=== PATIENT | male | born 1930 | race Caucasian/White ===

== ENCOUNTER → 2016-08-04 | Outpatient (CLI) | payer OTHER, BC ==
[~2016-08-04] MED LIST: AMB5 PO; AMOX500C3 PO; ASCO500C43 PO; ASPI81TA21 PO; ATOR-24 PO; ATV1 PO; CHOL100010 PO; CYAN10004 PO; DOCU-94 PO; EFF375 PO; FINA5TAB PO; GABA-112 PO; HYDR25TA4 PO; LISI40TA PO; MINEOIL PO; MRPSR15 PO; MULT-506 PO; OXYC15TA89 PO; POLY1POW2 PO; PSYL1.7W PO; RXC5 PO; SENN-65 PO; TAMS0.4C59 PO
[2016-08-04 14:37] LABS: BASO % 0.3 %; BASO ABS # 0.02 K/uL (0-0.2); COMPLETE YES; EOS % 3.1 %; IG% 0.4 %; LYMPH % 25.6 %; LYMPH ABS # 1.93 K/uL (1.2-3.4); MEAN CELL VOLUME 87.9 fL (80-100); MEAN CORPUSCULAR HEMOGLOBIN 30.1 pg (25-34); MEAN CORPUSCULAR HGB CONC 34.3 g/dl (32-36); MEAN PLATELET VOLUME 10.9 fL (7.4-10.4); MONO % 7.3 %; NEUT % 63.3 %; PLATELET COUNT 246 K/uL (130-400); RED BLOOD COUNT 4.55 M/uL (4.7-6.1); WHITE BLOOD COUNT 7.54 K/uL (4.8-10.8)
[2016-08-04 14:38] LABS: URINE APPEARANCE CLEAR (CLEAR); URINE BILIRUBIN NEG (NEG); URINE COLOR YELLOW; URINE NITRITE NEG (NEG); URINE SPECIFIC GRAVITY 1.015 (1.000-1.030); UROBILINOGEN NEG (NEG)
[2016-08-04 14:47] LABS: REVIEW REQ? NO
[2016-08-04 14:52] LABS: MANUAL MICROSCOPIC REQUIRED? NO
[2016-08-04 15:16] LABS: BLOOD UREA NITROGEN 19 mg/dl (7-18); BUN/CREATININE RATIO 17.3 (10-20); CALCIUM 9.6 mg/dl (8.5-10.1); CARBON DIOXIDE 29 mmol/L (21-32); CHLORIDE 97 mmol/L (98-107); GLUCOSE 82 mg/dl (70-99); POTASSIUM 3.9 mmol/L (3.5-5.1); SODIUM 136 mmol/L (136-145)
== END | disposition home or self-care (01) ==
LOC: C.LAB 12:53
PROVIDERS: ATTEND Orthopaedic Surgery Orthopaedic Surgery of the Spine
DX: M48.06 Spinal stenosis, lumbar region (principal)

== ENCOUNTER 2016-08-14 10:59 | Inpatient (IN) | payer OTHER, BC ==
[2016-08-03 15:02] VITALS: BMI 26.0
[~2016-08-14] VITALS: Ht 180.3 cm; Wt 86.5 kg
[2016-08-14] VITALS (18 sets, daily range): BP systolic 75–166; BP diastolic 7–79; PULSE 78–112; TEMP 36.4; O2SAT 87–100; Ht 180.3 cm; Wt 86.5 kg
--- NOTE | 2016-08-14 07:43 | History and Physical ---
History & Physical Date & Time of Service: Aug 14, 2016 at 07:33 Chief Complaint: Spinal Stenosis Primary Care Physician: Dylon Platt M.D. History of Present Illness Source: patient Patient presents with right greater than eft leg pain. 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 Social History Smoking Status: Former Smoker Immunizations History of Influenza Vaccine: No History of Tetanus Vaccine?: No History of Pneumococcal: No History of Hepatitis B Vaccine: No Multi-Drug Resistant Organisms History of MDRO: No Allergies Coded Allergies: Duloxetine (Unverified Allergy, Unknown, per PCP note , 08/03/16) Home Medications Scheduled Amoxicillin (Amoxil), 2,000 MG PO PRN/UD Ascorbic Acid (Vitamin C 500 mg), Unknown Dose PO QAM Aspirin Enteric Coated (Ecotrin Or Generic), 81 MG PO QAM Atorvastatin (Lipitor), 40 MG PO QAM Cholecalciferol (Vitamin D), 1 TAB PO QAM Cyanocobalamin (Vitamin B-12 1000 Mcg), 1,000 MCG PO QAM Docusate Sodium (Colace), 1 CAP PO QPM Finasteride (Proscar), 5 MG PO QPM Gabapentin (Neurontin), 100-300 MG PO TID Hydrochlorothiazide (Hctz), 12.5 MG PO QAM Lisinopril (Zestril), 40 MG PO QAM Mineral Oil (Mineral Oil), 1 TSP PO QPM Multivitamin (Multivitamin), 1 TABLET PO QAM Oxycodone Hcl (Oxycontin), 10 MG PO Q12 Polyethylene Glycol 3350 (Bulk (Polyethylene Glycol 3350), 17 GM PO QPM Psyllium (Metamucil), Unknown Dose PO QPM Senna/Docusate Sod (Senokot S), 1 TAB PO QPM Tamsulosin Hcl (Flomax), 2 TAB PO QPM Venlafaxine HCl (Venlafaxine HCl), 1 TAB PO QAM Zolpidem Tartrate (Ambien *), 5 MG PO HS Scheduled PRN Lorazepam (Ativan *), 1 TAB PO BID PRN for Anxiety/Agitation Physical Exam General Appearance: WD/WN Head: normocephalic Eyes: normal inspection ENT: normal ENT inspection Neck: supple, no adenopathy Respiratory/Chest: chest non-tender Cardiovascular: normal peripheral pulses Abdomen/GI: non tender, soft Back: no muscle spasm Extremities/Musculoskelatal: non-tender Neurologic/Psych: + abnormal gait, + motor weakness Skin: normal color Diagnostics Diagnostic Radiology MRI L2-S1 post op changes. Stenosis at L1-L2 compromising the thecal sack. Impression Assessment and Plan Adjacent disease with significant stenosis, right greater than left leg pain. He has failed all conservative measures and presents for a thoraco-lumbar decompression and fusion. Advanced Directives Existing Living Will: Yes Existing Power of Automotive Parts Counterperson: No
--- NOTE | 2016-08-14 09:24 | History & Physical Bridge Note ---
H&P Re-Evaluation Bridge Note: I have examined the patient, reviewed the History & Physical and in the interval since the performance of the History & Physical I have noted the following changes of clinical significance: No changes noted
[~2016-08-14 10:59] MED LIST changes: +CEFAZOLIN 2000 MG/60 ML D5W IV SCH; +LACTATED RINGER'S 1000ML 1,000 ML IV SCH; -MRPSR15 PO; +OXYCODONE HCL 10 MG TABCR (OXYCONTIN) PO SCH; -RXC5 PO
[2016-08-14] MEDS ORDERED: HYDROmorphone INJ 1 MG/ML SYR IV PRN (11:15)
[2016-08-14] MEDS ORDERED: EpHEDrine SULFATE INJ 50 MG/ML AMP IV PRN (11:15)
[2016-08-14] MEDS ORDERED: ATROPINE SULFATE 0.1 MG/ML 5ML SYR IV PRN (11:15)
[2016-08-14] MEDS ORDERED: ONDANSETRON INJ 2 MG/ML 2 ML VIAL IV PRN ×2 (11:15→16:30)
[2016-08-14] MEDS ORDERED: LABETALOL HCL IV 5 MG/ML 20ML IV PRN (11:15)
[2016-08-14] MEDS ORDERED: MEPERIDINE HCL 25 MG/ML CARP IV PRN (11:15)
[2016-08-14] MEDS ORDERED: FENTANYL CITRATE INJ 50 MCG/1 ML 2 ML VIAL IV PRN (11:15)
[2016-08-14] MEDS ORDERED: ETOMIDATE 2 MG/ML 20 ML VIAL IV ONE (12:27)
[2016-08-14] MEDS ORDERED: ROCURONIUM BROMIDE 10 MG/ML 5 ML VIAL ONE (12:27)
[2016-08-14] MEDS ORDERED: FENTANYL CITRATE INJ 50 MCG/1 ML 2 ML VIAL ONE ×4 (12:27→17:18)
[2016-08-14] MEDS ORDERED: ONDANSETRON INJ 2 MG/ML 2 ML VIAL ONE (12:33)
[2016-08-14] MEDS ORDERED: DEXAMETHASONE SOD INJ 4 MG/ML VIAL ONE ×2 (12:33)
[2016-08-14] MEDS ORDERED: SODIUM CHLORIDE 0.9% PF 50 ML VIAL ONE (12:58)
[2016-08-14] MEDS ORDERED: BUPIVACAINE/EPINEPHRINE 0.5% MPF 1:200,000 30 ML VIAL ONE (12:58)
[2016-08-14] MEDS ORDERED: THROMBIN FOR SOLN 20000 UNIT KIT ONE (12:59)
[2016-08-14] MEDS ORDERED: BACITRACIN 50000 UNIT VIAL ONE (12:59)
--- NOTE | 2016-08-14 13:00 | History & Physical Bridge Note ---
H&P Re-Evaluation Bridge Note: I have examined the patient, reviewed the History & Physical and in the interval since the performance of the History & Physical I have noted the following changes of clinical significance: No changes noted T10 to S1 with iliac bolt fusion. Removal inst L2-l5
[2016-08-14] MEDS ORDERED: HYDROmorphone INJ 2 MG/ML SYR/VIAL ONE (13:41)
[2016-08-14] MEDS ORDERED: PROPOFOL IV EMULSION 10 MG/ML 20 ML VIAL IV ONE (13:41)
[2016-08-14] MEDS ORDERED: PHENYLEPHRINE 100MCG/ML 5ML SYR ONE (14:18)
[2016-08-14 15:22] LABS: ISTAT CREATININE 0.6 mg/dl (0.6-1.3); ISTAT HEMOGLOBIN 10.2 g/dl (14.0-18.0); ISTAT IONIZED CALCIUM 1.21 mmol/l (1.12-1.32)
[2016-08-14] MEDS ORDERED: SODIUM CHLORIDE 0.9% 1000ML 1,000 ML IV SCH (16:24)
[2016-08-14] MEDS ORDERED: LACTATED RINGER'S 1000ML 1,000 ML IV SCH (16:24)
[2016-08-14] MEDS ORDERED: SOD PHOSPHATE/SOD BIPHOSPHATE ENEMA 132 ML BTL PR PRN (16:30)
[2016-08-14] MEDS ORDERED: METOCLOPRAMIDE HCL INJ 5 MG/ML 2 ML VIAL IV PRN (16:30)
[2016-08-14] MEDS ORDERED: hydrOXYzine HCL 25 MG TAB PO PRN (16:30)
[2016-08-14] MEDS ORDERED: PROMETHAZINE HCL INJ 12.5 MG in SODIUM CHLORIDE 0.9% 50ML 50 ML IV PRN (16:30)
[2016-08-14] MEDS ORDERED: MAGNESIUM HYDROXIDE SUSP 30 ML UDC PO PRN (16:30)
[2016-08-14] MEDS ORDERED: BISACODYL 10 MG SUPP PR PRN (16:30)
[2016-08-14] MEDS ORDERED: ACETAMINOPHEN IV 100 ML IV PRN (16:30)
[2016-08-14] MEDS ORDERED: DO NOT ADMINISTER PNEUMOCOCCAL VACCINE PRN ×2 (16:30)
[2016-08-14] MEDS ORDERED: LORAZEPAM INJ 0.5 MG in SYRINGE 0 ML IV PRN (16:30)
[2016-08-14] MEDS ORDERED: DO NOT ADMINISTER FLU VACCINE PRN ×3 (16:30)
[2016-08-14] MEDS ORDERED: NALOXONE HCL 0.4 MG/1 ML VIAL/CARP IV PRN ×2 (16:30)
[2016-08-14] MEDS ORDERED: HYDROmorphone HCL 0.5MG/ML 50 ML CASSETTE IV PRN (16:30)
[2016-08-14] MEDS ORDERED: ALBUMIN HUMAN 5% 12.5 GM/250 ML VIAL IV ONE (16:44)
--- NOTE | 2016-08-14 16:49 | DIAGNOSTIC IMAGING REPORT ---
Lumbar spine LUMBAR SPINE 2 OR 3 VIEW CLINICAL HISTORY: T10-S1 DECOMPRESSION/FUSION/INTERBODY/PEDICLE SCREWS TECHNIQUE: Image intensifier COMPARISON STUDY: None FINDINGS: Image intensifier utilized for lumbar spine laminectomy and pelvic bolt placement IMPRESSION: Lumbar laminectomy and fusion Electronically signed by: Mario Caicedo M.D. 08/14/2016 4:48 PM Dictated Date/Time: 08/14/2016 4:47 PM
[2016-08-14] MEDS ORDERED: FLOSEAL HEMOSTATIC MATRIX 10ML TOP ONE (17:08)
[2016-08-14] MEDS ORDERED: HYDROmorphone HCL 0.5MG/ML 50 ML CASSETTE ONE (17:16)
--- NOTE | 2016-08-14 17:20 | OPERATIVE REPORT ---
DATE OF OPERATION: 08/14/2016 PREOPERATIVE DIAGNOSES: Spinal stenosis, degenerative scoliosis. POSTOPERATIVE DIAGNOSIS: Same. PROCEDURE PERFORMED: 1. Removal of posterior segmental instrumentation, L2-L3, L3-L4, L4-L5. 2. Exploration of fusion L2-L3, L3-L4, L4-L5. 3. Lumbar decompression, medial facetectomies, foraminotomies L1-L2, L5-S1. 4. Posterior spinal fusion T10-S1. 5. Bilateral SI joint fusions. 6. Placement of posterior segmental instrumentation using Medicrea rods and screws T11-S1 with bilateral iliac bolts. 7. Infuse collagen sponge combined with Mastergraft placed in the posterolateral gutters and bilateral SI joints. 8. Placement of locally harvested morcellized autograft in the placed in the posterior gutters. SURGEON: Dr. Fabio Gallegos. JAVA PORTAL DEVELOPER: Due to the complex nature of the procedure, the entire surgery was performed with the assistant professor of [employer] Pearce. The assistant gm of content & delivery, under direct supervision, was involved in the actual performance of all aspects of the surgical procedure including hemostasis, tissue retraction and incision, instrument management, patient positioning, and wound closure. ANESTHESIA: General. DISPOSITION: The patient awakened and taken to PACU in stable condition. HISTORY OF PATIENT'S PROBLEMS: This is an 86-year-old male who is well known to me that presented with the above-mentioned diagnosis. After failing an extensive course of nonoperative care, elected to undergo the above-mentioned procedure. Risks, benefits, pros, cons, and alternatives were outlined in detail preoperatively. DESCRIPTION OF PROCEDURE: The patient was met with preoperatively, case discussed and all questions were addressed. At that point the patient was taken back to operative suite and after undergoing successful general endotracheal intubation by the department of anesthesia was placed in prone position on Uche table atop Jacobo frame. All bony prominences were well padded and the eyes were inspected to ensure there was no external pressure placed upon them. At this point, the thoracolumbar spine was prepped and draped in normal sterile fashion. Sharp dissection with the assistance of Bovie cautery performed down to and exposing the lamina and transverse processes of T10, T11, T12, L1, instrumentation at the 2, 3, 4, 5 levels bilaterally as well as the bilateral ala and SI joints. I then proceeded to remove the hardware at 2, 3, 4, 5 levels bilaterally exploring the fusion mass noting it to be intact. I then performed a complete laminectomy of L5 including medial facetectomies and foraminotomies addressing severe lateral recess disease. We also performed partial laminectomy of L1 to address stenosis at this region as well. Pedicle screws were then placed in T11-12, L1, L2, L3, L5, S1 and bilateral iliac bolts, transverse processes and lamina of T10, 11, 12, L1, L2, L3, L4, L5, sacral ala and the bilateral SI joints were then burred to subcortical bleeding bone. Infuse collagen sponge combined with Mastergraft and locally harvested morcellized graft was packed in the SI joints in the posterior gutters. Appropriate size rods contoured and locked into position as well as a crosslink. We did not pursue an interbody fusion at L5-S1 level secondary to blood loss and low blood pressure. We did elect to close at this time. Again, a 7 flat RIVER drain inserted and incision closed with 1-0 Vicryl in the fascia, 2-0 Vicryl subcutaneously, 4-0 Monocryl for final skin closure. Steri-Strips and sterile dressing was placed. The patient was awakened and taken to PACU in stable condition. I attest to the content of the Intraoperative Record and any orders documented therein. Any exceptio ns are noted below.
[2016-08-14 18:00] LABS: HEMATOCRIT 28.7 % (42-52)
--- NOTE | 2016-08-14 18:23 | Progress Note ---
Progress Note This patient had a large multi level thoracolumbar fusion. Although there were no noted complications, his EBL was 1250cc and he did require vasoactive pressor support during the case along with 3 liters of crystalloid and 2u PRBC. In recovery, the patient did receive a liter of colloid fluid and hemoglobin was rechecked at 04/24. Given his multiple severe cardiopulmonary comorbidities and the extensive nature of his surgery and blood loss, I think it is appropriate for him to be closely monitored in the surgical intensive care unit overnight. I have spoken with the pharmacy delivery driver Dr Garay who kindly agreed to accept this patient in the ICU.
--- NOTE | 2016-08-14 18:24 | Anesthesiology Progress Note ---
Anesthesia Post Op Note Date & Time Aug 14, 2016 at 18:23 Vital Signs Pain Intensity: 6 Vital Signs Past 12 Hours Date Time Temp Pulse Resp B/P Pulse Ox O2 Delivery O2 Flow Rate FiO2 08/14/16 18:15 36.2 08/14/16 18:00 93 16 89/57 100 Nasal Cannula 4 08/14/16 17:50 36.2 89 16 101/61 100 Nasal Cannula 4 08/14/16 17:40 36.1 85 16 86/52 100 Nasal Cannula 4 08/14/16 17:30 85 16 116/51 100 Mask 10 08/14/16 17:20 86 16 104/64 100 Mask 10 08/14/16 17:10 91 16 105/59 100 Mask 10 08/14/16 17:03 36.7 100 16 120/58 100 Mask 10 08/14/16 11:25 36.4 78 20 166/7 93 Room Air Notes Mental Status: alert / awake / arousable, participated in evaluation Pt Amnestic to Procedure: Yes Nausea / Vomiting: adequately controlled Pain: adequately controlled Airway Patency, RR, SpO2: stable & adequate BP & HR: stable & adequate Hydration State: stable & adequate Anesthetic Complications: no major complications apparent Please see progress note for details. Patient dispositioned to ICU overnight.
--- NOTE | 2016-08-14 18:39 | Critical Care Consultation ---
Critical Care Consultation Date of Consultation: Aug 14, 2016. Attending Physician: Dr. Garay Reason for Consultation: Hypotension after Spinal fusion History of Present Illness This is a pleasant 86 y/o gentleman with a pmh of severe aortic stenosis, Carotid artery stenosis, COPD, HTN, Lumbar stenosis who presented for an elective multi level thoracolumbar fusion. He did lose about 1250 cc during the procedure and became hypotensive requiring some vasoactive pressor support along with 3 litres of crystalloid and 2 units of RBC. He was transferred to the ICU for further management given his comorbidities. In the ICU, he reports 6/10 pain. ROS is otherwise negative. Past Medical/Surgical History Aortic Stenosis, Carotid artery stensis COPD HN Lumbar stenosis Family History Dad- prostate cancer Mom- CVA Social History Smoking Status: Former Smoker Alcohol Use: socially Drug Use: none Marital Status: Housing Status: lives with family Occupation Status: retired Allergies Coded Allergies: Duloxetine (Unverified Allergy, Unknown, per PCP note , 08/14/16) Home Medications Scheduled Amoxicillin (Amoxil), 2,000 MG PO PRN/UD Ascorbic Acid (Vitamin C 500 mg), Unknown Dose PO QAM Aspirin Enteric Coated (Ecotrin Or Generic), 81 MG PO QAM Atorvastatin (Lipitor), 40 MG PO QAM Cholecalciferol (Vitamin D), 1 TAB PO QAM Cyanocobalamin (Vitamin B-12 1000 Mcg), 1,000 MCG PO QAM Docusate Sodium (Colace), 1 CAP PO QPM Finasteride (Proscar), 5 MG PO QPM Gabapentin (Neurontin), 100-300 MG PO TID Hydrochlorothiazide (Hctz), 12.5 MG PO QAM Lisinopril (Zestril), 40 MG PO QAM Mineral Oil (Mineral Oil), 1 TSP PO QPM Multivitamin (Multivitamin), 1 TABLET PO QAM Oxycodone Hcl (Oxycontin), 10 MG PO Q12 Psyllium (Metamucil), Unknown Dose PO QPM Senna/Docusate Sod (Senokot S), 1 TAB PO QPM Tamsulosin Hcl (Flomax), 2 TAB PO QPM Venlafaxine HCl (Venlafaxine HCl), 1 TAB PO QAM Zolpidem Tartrate (Ambien *), 5 MG PO HS Scheduled PRN Lorazepam (Ativan *), 1 TAB PO BID PRN for Anxiety/Agitation Current Inpatient Medications Current Inpatient Medications Medications (Trade) Dose Ordered Sig/Camille Route Start Time Stop Time Status Last Admin Dose Admin Dexamethasone Sodium Phosphate 6 mg/Syringe 1.5 ml @ 1 mls/min Q8H IV 08/14/16 16:30 08/15/16 08:32 UNV Promethazine HCl/ Sodium Chloride (Phenergan Inj/ Nss 50ml) 50.5 ml @ 202 mls/hr Q6H PRN IV 08/14/16 16:30 09/13/16 16:29 UNV Ondansetron HCl (Zofran Inj) 4 mg Q6H PRN IV 08/14/16 16:30 09/13/16 16:29 UNV Metoclopramide HCl (Reglan Inj) 10 mg Q6H PRN IV 08/14/16 16:30 09/13/16 16:29 UNV Lorazepam 0.5 mg 0.5 mg Q8H PRN PO 08/14/16 16:30 09/13/16 16:29 UNV Lorazepam/Syringe (Ativan Inj/ Syringe) 0.25 ml @ 1 mls/min Q8H PRN IV 08/14/16 16:30 09/13/16 16:29 UNV Pneumococcal Polysaccharide Vaccine 1 ea PRN PRN N/A 08/14/16 16:30 09/13/16 16:29 UNV Influenza Virus Vacc Triv Types A&B 1 ea PRN PRN N/A 08/14/16 16:30 09/13/16 16:29 UNV Polyethylene (Miralax Powder Packet) 17 gm Q6 PO 08/16/16 06:00 09/15/16 05:59 UNV Bisacodyl (Dulcolax Supp) 10 mg DAILY PRN CA 08/14/16 16:30 09/13/16 16:29 UNV Magnesium Hydroxide (Milk Of Magnesia Susp) 30 ml DAILY PRN PO 08/14/16 16:30 09/13/16 16:29 UNV Hydromorphone HCl (Dilaudid Inj) 0.5-1mg prn moder... Q3H PRN IV 08/14/16 16:30 08/28/16 16:29 UNV Oxycodone HCl 5-10mg prn moderate to sev... Q4H PRN PO 08/15/16 06:00 08/29/16 05:59 UNV Cefazolin Sodium 2000 mg/Dextrose 60 ml @ 100 mls/hr Q8H IV 08/14/16 16:30 08/15/16 01:05 UNV Lactated Ringer's (Lr 1000ml) 1,000 ml @ 150 mls/hr Q6H40M IV 08/14/16 16:24 09/13/16 16:23 UNV Acetaminophen 1000 mg 1,000 mg Q8H PRN PO 08/14/16 16:30 09/13/16 16:29 UNV Acetaminophen (Ofirmev Iv) 100 ml @ 400 mls/hr Q8H PRN IV 08/14/16 16:30 09/13/16 16:29 UNV Naloxone HCl (Narcan Inj) 0.1 mg Q5M PRN IV 08/14/16 16:30 09/13/16 16:29 UNV Senna/Docusate Sodium (Senokot S Tab) 2 tab HS PO 08/14/16 21:00 09/13/16 20:59 UNV Sodium Biphosphate/ Sodium Phosphate (Fleet Enema) 132 ml ONE PRN CA 08/14/16 16:30 09/13/16 16:29 UNV Hydroxyzine HCl (Vistaril Tab) 25 mg Q8H PRN PO 08/14/16 16:30 09/13/16 16:29 UNV Al Hydroxide/Mg Hydroxide (Maalox Susp) 30 ml Q6H PRN PO 08/14/16 16:30 09/13/16 16:29 UNV Famotidine (Pepcid Tab) 20 mg Q12 PRN PO 08/14/16 16:30 09/13/16 16:29 UNV Diphenhydramine HCl (Benadryl Cap) 25 mg Q6H PRN PO 08/14/16 16:30 09/13/16 16:29 UNV Miscellaneous Information (Discontinue CERTIFIED MEDICAL DOSIMETRIST) 1 ea DIRECTED PRN N/A 08/14/16 16:30 08/15/16 16:29 UNV Naloxone HCl (Narcan Inj) 0.1 mg Q5M PRN IV 08/14/16 16:30 09/13/16 16:29 UNV Hydromorphone HCl 25 mg 25 mg PRN PRN IV 08/14/16 16:30 08/28/16 16:29 UNV Sodium Chloride (Nss 1000ml) 1,000 ml @ 15 mls/hr Q24H IV 08/14/16 16:24 09/13/16 16:23 UNV Aspirin (Ecotrin Tab) 81 mg QAM PO 08/15/16 09:00 09/14/16 08:59 UNV Atorvastatin Calcium (Lipitor Tab) 40 mg QAM PO 08/15/16 09:00 09/14/16 08:59 UNV Finasteride (Proscar Tab) 5 mg QPM PO 08/14/16 21:00 09/13/16 20:59 UNV Gabapentin (Neurontin Cap) 300 mg TID PO 08/14/16 21:00 09/13/16 20:59 UNV Hydrochlorothiazide (Hydrochlorothiazide Tab) 12.5 mg QAM PO 08/15/16 09:00 09/14/16 08:59 UNV Lisinopril (Zestril Tab) 40 mg QAM PO 08/15/16 09:00 09/14/16 08:59 UNV Oxycodone HCl (Oxycontin Tab) 10 mg Q12 PO 08/14/16 21:00 08/28/16 20:59 UNV Tamsulosin HCl (Flomax Cap) 0.8 mg QPM PO 08/14/16 21:00 09/13/16 20:59 UNV Venlafaxine HCl (effeXOR TAB) 37.5 mg QAM PO 08/15/16 09:00 09/14/16 08:59 UNV Zolpidem Tartrate (Ambien Tab) 5 mg HS PO 08/14/16 21:00 09/13/16 20:59 UNV Review of Systems See above for pertinent positives & negatives. A total of 10 systems reviewed and were otherwise negative. Constitutional: No chills, No fever Eyes: No worsening of vision Respiratory: No cough, No dyspnea at rest, No dyspnea on exertion, No shortness of breath, No sputum, No wheezing Cardiovascular: No chest pain Abdomen: No nausea, No pain, No vomiting Musculoskeletal: + joint pain, + muscle pain, No calf pain Physical Exam Date Time Temp Pulse Resp B/P Pulse Ox O2 Delivery O2 Flow Rate FiO2 08/14/16 18:24 36.4 94 13 95/63 100 Nasal Cannula 3.0 08/14/16 18:15 36.2 08/14/16 18:00 93 16 89/57 100 Nasal Cannula 4 08/14/16 17:50 36.2 89 16 101/61 100 Nasal Cannula 4 08/14/16 17:40 36.1 85 16 86/52 100 Nasal Cannula 4 08/14/16 17:30 85 16 116/51 100 Mask 10 08/14/16 17:20 86 16 104/64 100 Mask 10 08/14/16 17:10 91 16 105/59 100 Mask 10 08/14/16 17:03 36.7 100 16 120/58 100 Mask 10 08/14/16 11:25 36.4 78 20 166/7 93 Room Air General Appearance: no apparent distress Eyes: PERRL, EOMI ENT: hearing grossly normal Neck: supple, no adenopathy Respiratory/Chest: lungs clear, normal breath sounds, no respiratory distress Cardiovascular: regular rate, rhythm, no edema Abdomen/GI: normal bowel sounds, non tender, soft Back: + pertinent finding (Dressing in place s/p fusion, RIVER drain in place with serosanginous drainage) Neurologic/Psych: 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 II-XII nml as tested, no motor/sensory deficits, alert, normal mood/affect, oriented x 3 Laboratory Results Last 24 Hours Test 08/14/16 15:06 08/14/16 17:52 Bedside Hemoglobin 10.2 g/dl Bedside Hematocrit 30 % Bedside Sodium 135 mEq/L Bedside Potassium 3.6 mEq/L Bedside Chloride 100 mEq/L Bedside Total CO2 27 mEq/l Anion Gap 13.0 mmol/L Bedside Blood Urea Nitrogen 13 mg/dl Bedside Creatinine 0.6 mg/dl Bedside Glucose (other) 146 mg/dl Bedside Ionized Calcium (Yuni) 1.21 mmol/l Hemoglobin 10.0 g/dL Hematocrit 28.7 % Assessment & Plan Neuro: S/p Multi-level fusion Pain control Monitor drainage from RIVER Care as per Ortho-spine CVS: Hypotensive Normosol @ 125 ml/hr pressor support if required ECHO: normal Left ventricular systolic function, Mild left ventricular hypertroph, Diastolic dysfunction, mod-severe No previous caths, no cp/exertional dyspnea KAREN- 70% VIVIENNE, 50-69% LIC Continue aspirin, Lipitor Hold HCTZ and Lisinopril Pulm: Stable GI no indications for protonix Endo Blood sugars acceptable- continue monitoring Heme/onc S/p 2 units pRBC for blood loss Hold 2 extra units CBC q6 DVT proph: Hold oral anticoagulation s/p surgery, SCDs Code: Full Resident Physician Supervision Note: Dr. Sonia Rascon was resident physician during care of patient. I separately evaluated patient and did history and exam. I discussed the case with the resident and generally agree with the findings and plan. Q6 CBC, 2 units PRBCs on hold. Gentle hydration. Ketamine if pain uncontrolled. Documented By: Neil Garay DO Resident Tracking Resident Involvement: Resident Care Provided Care Provided: Adult Hospital Medicine
[2016-08-14] MEDS: NORMOSOL R 1,000 ML IV SCH (19:22)
[2016-08-14] MEDS: CEFAZOLIN IV 2,000 MG in DEXTROSE 5% 50ML 50 ML IV SCH (20:09)
[2016-08-14] MEDS: DEXAMETHASONE INJ 6 MG in SYRINGE 0 ML IV SCH (20:09)
[2016-08-14] MEDS: GABAPENTIN 300 MG CAP PO SCH (20:54)
[2016-08-14] MEDS: TAMSULOSIN HCL 0.4 MG CAP PO SCH (20:54)
[2016-08-14] MEDS: FINASTERIDE 5 MG TAB PO SCH (20:54)
[2016-08-14] MEDS: DOCUSATE SODIUM/SENNA 50/8.6MG TAB PO SCH (20:54)
[2016-08-14] MEDS ORDERED: OXYCODONE HCL 10 MG TABCR (OXYCONTIN) PO SCH (21:00)
[2016-08-14 21:43] LABS: MEAN CELL VOLUME 86.8 fL (80-100); MEAN CORPUSCULAR HEMOGLOBIN 30.5 pg (25-34); MEAN CORPUSCULAR HGB CONC 35.2 g/dl (32-36); MEAN PLATELET VOLUME 10.7 fL (7.4-10.4); PLATELET COUNT 193 K/uL (130-400); RED BLOOD COUNT 3.11 M/uL (4.7-6.1); WHITE BLOOD COUNT 13.83 K/uL (4.8-10.8)
--- NOTE | 2016-08-14 21:56 | Medical Consult ---
Consultation Date of Consultation: Aug 14, 2016. Attending Physician: Fabio Gallegos D.O. Reason for Consultation: Medical input post-op History of Present Illness 86 y/o M w/Hx severe , Carotid stenosis, COPD, HTN, HPL, Lumbar stenosis who was admitted for thoracolumbar fusion as he had failed conservative measures to treat back pain. During the procedure the pt had an estimated blood loss of 1200cc and became hypotensive requiring transfusion of 2U PRBC, aggressive fluid resuscitation and temporary pressor support. He was transferred to the ICU following the procedure where he was initially evaluated by the technical recruiter. The pt has been stable - AAO x 3 and off pressors in the ICU. He complains of post-op pain and also states that he feels like there is something stuck in his throat while insisting that this could not possibly be a pill ( which is the only thing he has had aside from water. He denies CP, SOB, N/V or lightheadedness. Past Medical/Surgical History 1) COPD 2) Spinal stenosis with chronic intractable back pain 3) Severe - 1.0 cm 2014 4) Grade 1 diastolic dysfunction on echo 2014 5) Carotid stenosis 6) HTN 7) Hyperlipidemia Social History Smoking Status: Former Smoker Alcohol Use: socially Drug Use: none Marital Status: Housing Status: lives with family Occupation Status: retired Allergies Coded Allergies: Duloxetine (Unverified Allergy, Unknown, per PCP note , 08/14/16) Current Inpatient Medications Current Inpatient Medications Medications (Trade) Dose Ordered Sig/Camille Route Start Time Stop Time Status Last Admin Dose Admin Dexamethasone Sodium Phosphate 6 mg/Syringe 1.5 ml @ 1 mls/min Q8H IV 08/14/16 20:00 08/15/16 12:02 08/14/16 20:09 1 MLS/MIN Promethazine HCl/ Sodium Chloride (Phenergan Inj/ Nss 50ml) 50.5 ml @ 202 mls/hr Q6H PRN IV 08/14/16 16:30 09/13/16 16:29 Ondansetron HCl (Zofran Inj) 4 mg Q6H PRN IV 08/14/16 16:30 09/13/16 16:29 Metoclopramide HCl (Reglan Inj) 10 mg Q6H PRN IV 08/14/16 16:30 09/13/16 16:29 Lorazepam 0.5 mg 0.5 mg Q8H PRN PO 08/14/16 16:30 09/13/16 16:29 Lorazepam/Syringe (Ativan Inj/ Syringe) 0.25 ml @ 1 mls/min Q8H PRN IV 08/14/16 16:30 09/13/16 16:29 Pneumococcal Polysaccharide Vaccine 1 ea PRN PRN N/A 08/14/16 16:30 09/13/16 16:29 Influenza Virus Vacc Triv Types A&B 1 ea PRN PRN N/A 08/14/16 16:30 09/13/16 16:29 Polyethylene (Miralax Powder Packet) 17 gm Q6 PO 08/16/16 06:00 09/15/16 05:59 Bisacodyl (Dulcolax Supp) 10 mg DAILY PRN MD 08/14/16 16:30 09/13/16 16:29 Magnesium Hydroxide (Milk Of Magnesia Susp) 30 ml DAILY PRN PO 08/14/16 16:30 09/13/16 16:29 Hydromorphone HCl (Dilaudid Inj) 0.5-1mg prn moder... Q3H PRN IV 08/15/16 06:00 08/29/16 05:59 Oxycodone HCl 5-10mg prn moderate to sev... Q4H PRN PO 08/15/16 06:00 08/29/16 05:59 Cefazolin Sodium 2000 mg/Dextrose 60 ml @ 100 mls/hr Q8H IV 08/14/16 20:00 08/15/16 04:35 08/14/16 20:09 100 MLS/HR Lactated Ringer's (Lr 1000ml) 1,000 ml @ 150 mls/hr Q6H40M IV 08/14/16 16:24 09/13/16 16:23 Acetaminophen 1000 mg 1,000 mg Q8H PRN PO 08/14/16 16:30 09/13/16 16:29 Acetaminophen (Ofirmev Iv) 100 ml @ 400 mls/hr Q8H PRN IV 08/14/16 16:30 09/13/16 16:29 Naloxone HCl (Narcan Inj) 0.1 mg Q5M PRN IV 08/14/16 16:30 09/13/16 16:29 Senna/Docusate Sodium (Senokot S Tab) 2 tab HS PO 08/14/16 21:00 09/13/16 20:59 08/14/16 20:54 2 TAB Sodium Biphosphate/ Sodium Phosphate (Fleet Enema) 132 ml ONE PRN MD 08/14/16 16:30 09/13/16 16:29 Hydroxyzine HCl (Vistaril Tab) 25 mg Q8H PRN PO 08/14/16 16:30 09/13/16 16:29 Al Hydroxide/Mg Hydroxide (Maalox Susp) 30 ml Q6H PRN PO 08/14/16 16:30 09/13/16 16:29 Famotidine (Pepcid Tab) 20 mg Q12 PRN PO 08/14/16 16:30 09/13/16 16:29 Diphenhydramine HCl (Benadryl Cap) 25 mg Q6H PRN PO 08/15/16 06:00 09/14/16 05:59 Miscellaneous Information (Discontinue HISTORIC SITE ADMINISTRATOR) 1 ea TODAY@0600 N/A 08/15/16 06:00 08/15/16 06:01 Naloxone HCl (Narcan Inj) 0.1 mg Q5M PRN IV 08/14/16 16:30 08/15/16 06:00 Hydromorphone HCl 25 mg 25 mg PRN PRN IV 08/14/16 16:30 08/15/16 06:00 Sodium Chloride (Nss 1000ml) 1,000 ml @ 15 mls/hr Q24H IV 08/14/16 16:24 08/15/16 06:00 Aspirin (Ecotrin Tab) 81 mg QAM PO 08/15/16 09:00 09/14/16 08:59 Atorvastatin Calcium (Lipitor Tab) 40 mg QAM PO 08/15/16 09:00 09/14/16 08:59 Finasteride (Proscar Tab) 5 mg QPM PO 08/14/16 21:00 09/13/16 20:59 08/14/16 20:54 5 MG Gabapentin (Neurontin Cap) 300 mg TID PO 08/14/16 21:00 09/13/16 20:59 08/14/16 20:54 300 MG Hydrochlorothiazide (Hydrochlorothiazide Tab) 12.5 mg QAM PO 08/15/16 09:00 09/14/16 08:59 Future Hold Lisinopril (Zestril Tab) 40 mg QAM PO 08/15/16 09:00 09/14/16 08:59 Future Hold Tamsulosin HCl (Flomax Cap) 0.8 mg QPM PO 08/14/16 21:00 09/13/16 20:59 08/14/16 20:54 0.8 MG Venlafaxine HCl (effeXOR TAB) 37.5 mg QAM PO 08/15/16 09:00 09/14/16 08:59 Zolpidem Tartrate 5 mg 5 mg HSZ PO 08/15/16 22:00 09/14/16 21:59 Parenteral Electrolyte Solution (Normosol R) 1,000 ml @ 125 mls/hr Q8H IV 08/14/16 19:30 09/13/16 19:29 08/14/16 19:22 125 MLS/HR Oxycodone HCl (Oxycontin Tab) 10 mg Q12 PO 08/15/16 09:00 08/29/16 08:59 Review of Systems Constitutional: No chills, No fever, No sweats Eyes: No eye pain, No worsening of vision ENT: + problem reported (feels like something is stuck in his throat), No hearing loss, No nasal symptoms, No unusual epistaxis Respiratory: No cough, No sputum, No wheezing Cardiovascular: No PND, No chest pain, No orthopnea Abdomen: No nausea, No pain, No vomiting Musculoskeletal: + joint pain, + muscle pain Genitourinary - Male: No dysuria, No hematuria Neurologic: + weakness, No memory loss, No paralysis Endocrine: No fatigue Hematologic / Lymphatic: No abnormal bleeding/bruising Integumentary: No rash Allergic / Immunologic: No environmental allergies Physical Exam Date Time Temp Pulse Resp B/P Pulse Ox O2 Delivery O2 Flow Rate FiO2 08/14/16 21:30 90 17 114/61 94 08/14/16 21:00 98 23 118/67 94 08/14/16 20:44 91 18 111/79 92 08/14/16 20:30 97 22 109/57 94 08/14/16 20:00 94 Room Air 08/14/16 20:00 97 15 96/59 94 Room Air 08/14/16 19:59 97 15 96/59 90 Room Air 08/14/16 19:45 101 19 84/43 95 Room Air 08/14/16 19:30 103 18 103/50 97 Room Air 08/14/16 19:13 103 16 119/57 100 08/14/16 19:00 112 20 112/61 93 08/14/16 18:58 103 21 112/57 87 08/14/16 18:45 95 16 75/37 92 08/14/16 18:43 85 14 98/54 100 08/14/16 18:30 100 12 122/60 08/14/16 18:24 36.4 94 13 95/63 100 Nasal Cannula 3.0 08/14/16 18:15 36.2 08/14/16 18:00 93 16 89/57 100 Nasal Cannula 4 08/14/16 17:50 36.2 89 16 101/61 100 Nasal Cannula 4 08/14/16 17:40 36.1 85 16 86/52 100 Nasal Cannula 4 08/14/16 17:30 85 16 116/51 100 Mask 10 08/14/16 17:20 86 16 104/64 100 Mask 10 08/14/16 17:10 91 16 105/59 100 Mask 10 08/14/16 17:03 36.7 100 16 120/58 100 Mask 10 08/14/16 11:25 36.4 78 20 166/7 93 Room Air General Appearance: WD/WN, no apparent distress Head: normocephalic, atraumatic Eyes: normal inspection, EOMI ENT: normal ENT inspection, pharynx normal Neck: supple, no JVD Respiratory/Chest: chest non-tender, lungs clear, normal breath sounds Cardiovascular: regular rate, rhythm, + systolic murmur Abdomen/GI: normal bowel sounds, non tender, soft Genitourinary - Male: + pertinent finding (cannot sit pt up at present) Extremities/Musculoskelatal: + pertinent finding (LE motro exam deferred - can move distal ext - pulses/sensation (+)) Neurologic/Psych: 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 as 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, no motor/sensory deficits, alert, oriented x 3 Skin: normal color, warm/dry, no rash Laboratory Results Last 24 Hours Test 08/14/16 15:06 08/14/16 17:52 08/14/16 21:08 08/14/16 21:10 Bedside Hemoglobin 10.2 g/dl Bedside Hematocrit 30 % Bedside Sodium 135 mEq/L Bedside Potassium 3.6 mEq/L Bedside Chloride 100 mEq/L Bedside Total CO2 27 mEq/l Anion Gap 13.0 mmol/L Bedside Blood Urea Nitrogen 13 mg/dl Bedside Creatinine 0.6 mg/dl Bedside Glucose (other) 146 mg/dl Bedside Ionized Calcium (Yuni) 1.21 mmol/l Hemoglobin 10.0 g/dL 9.5 g/dL Hematocrit 28.7 % 27.0 % White Blood Count 13.83 K/uL Red Blood Count 3.11 M/uL Mean Corpuscular Volume 86.8 fL Mean Corpuscular Hemoglobin 30.5 pg Mean Corpuscular Hemoglobin Concent 35.2 g/dl RDW Standard Deviation 44.6 fL RDW Coefficient of Variation 14.0 % Platelet Count 193 K/uL Mean Platelet Volume 10.7 fL Bedside Glucose 174 mg/dl Assessment & Plan 86 y/o M w/Hx severe , Carotid stenosis, COPD, HTN, HPL, Lumbar stenosis who was admitted for thoracolumbar fusion as he had failed conservative measures to treat back pain. During the procedure the pt had an estimated blood loss of 1200cc and became hypotensive requiring transfusion of 2U PRBC, aggressive fluid resuscitation and temporary pressor support. He was transferred to the ICU following the procedure where he was initially evaluated by the technical recruiter. The pt has been stable - AAO x 3 and off pressors in the ICU. He complains of post-op pain and also states that he feels like there is something stuck in his throat while insisting that this could not possibly be a pill ( which is the only thing he has had aside from water. He denies CP, SOB, N/V or lightheadedness. 1) Blood loss and hypotension intra/post-op spinal fusion - stabilized following transfusion - serial Hbs - transfuse PRN - monitored in ICU - on HISTORIC SITE ADMINISTRATOR for pain control 2) - Pt was evaluated by cardio pre-op - he dose not appear to be symptomatic although it of greater importance to maintain his BP - receiving IVF 3) Carotid stenosis - L primarily - at higher risk of CVA with hypotension 4) COPD - no evidence of exacerbation - breathing treatments PRN 5) Hyperlipidemia - not currently treated Total time for this consult including review of op noted, consults, labs - discussion/exam with pt - 35 min Med will follow daily pending D/C
[2016-08-14] MEDS: LORAZEPAM 0.5 MG TAB PO PRN (23:56)
[2016-08-15] VITALS (47 sets, daily range): BP systolic 81–180; BP diastolic 45–92; PULSE 90–116; TEMP 36.4–37.3; O2SAT 90–99
[2016-08-15] MEDS: LORAZEPAM 0.5 MG TAB PO PRN ×2 (00:55→22:11)
[2016-08-15] MEDS: ALUMINUM/MAGNESIUM SUSP 30 ML UDC PO PRN ×2 (03:20→23:40)
[2016-08-15] MEDS: CEFAZOLIN IV 2,000 MG in DEXTROSE 5% 50ML 50 ML IV SCH (03:40)
[2016-08-15] MEDS: DEXAMETHASONE INJ 6 MG in SYRINGE 0 ML IV SCH ×2 (03:40→13:32)
[2016-08-15] MEDS: NORMOSOL R 1,000 ML IV SCH ×3 (03:40→21:02)
[2016-08-15 04:05] LABS: HEMATOCRIT 25.4 % (42-52); MEAN CELL VOLUME 86.4 fL (80-100); MEAN CORPUSCULAR HEMOGLOBIN 29.9 pg (25-34); MEAN CORPUSCULAR HGB CONC 34.6 g/dl (32-36); MEAN PLATELET VOLUME 10.5 fL (7.4-10.4); PLATELET COUNT 188 K/uL (130-400); RED BLOOD COUNT 2.94 M/uL (4.7-6.1); WHITE BLOOD COUNT 12.68 K/uL (4.8-10.8)
[2016-08-15 04:21] LABS: BUN/CREATININE RATIO 14.6 (10-20); CALCIUM 7.9 mg/dl (8.5-10.1); CREATININE 1.5 mg/dl (0.60-1.40); POTASSIUM 4.6 mmol/L (3.5-5.1)
[2016-08-15 04:33] LABS: COMPLETE YES; IG% 0.5 %; LYMPH % 3.8 %; LYMPH ABS # 0.48 K/uL (1.2-3.4); MONO % 3.6 %; NEUT % 92.1 %
[2016-08-15] MEDS ORDERED: DC PCA SCH (06:00)
[2016-08-15] MEDS: ATORVASTATIN 40 MG TAB PO SCH (08:16)
[2016-08-15] MEDS: VENLAFAXINE HCL 37.5 MG TAB PO SCH (08:16)
[2016-08-15] MEDS: ASPIRIN 81 MG ECTAB PO SCH (08:16)
[2016-08-15] MEDS: GABAPENTIN 300 MG CAP PO SCH ×3 (08:17→21:00)
[2016-08-15] MEDS: OXYCODONE HCL 10 MG TABCR (OXYCONTIN) PO SCH ×2 (08:18→21:10)
--- NOTE | 2016-08-15 08:57 | Critical Care Progress Note ---
Critical Care Progress Note Date of Service Aug 15, 2016. Attending Dr. Garay Subjective Pain tolerable. No chest pain, nop shortness of breath. decreasing drain output. 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, no motor/sensory deficits, alert, normal mood/affect, oriented x 3 Assessment & Plan Neuro: S/p Multi-level fusion Pain control Monitor drainage from Care as per Ortho-spine CVS: Normosol @ 125 ml/hr ECHO: normal Left ventricular systolic function, Mild left ventricular hypertroph, Diastolic dysfunction, mod-severe No previous caths, no cp/exertional dyspnea KAREN- 70% VIVIENNE, 50-69% LIC Continue aspirin, Lipitor Hold HCTZ and Lisinopril Pulm: Incentive spirometry GI no indications for protonix Renal: AK I: 0.3 increase in creatinine Likely secondary to surgery and being hypoperfused for a short period of time , continue hydration and continue monitoring. Endo Blood sugars acceptable- continue monitoring Heme/onc S/p 2 units pRBC for blood loss Hold 2 extra units CBC q6, mild oozing but decreasing continue to check hemoglobin and hematocrit DVT proph: Hold oral anticoagulation s/p surgery, SCDs Code: Full I discussed this case with the hospitalist service is willing to accept this patient in transfer from critical care. Data Medications: Current Inpatient Medications Medications (Trade) Dose Ordered Sig/Camille Route Start Time Stop Time Status Last Admin Dose Admin Dexamethasone Sodium Phosphate 6 mg/Syringe 1.5 ml @ 1 mls/min Q8H IV 08/14/16 20:00 08/15/16 12:02 08/15/16 03:40 1 MLS/MIN Promethazine HCl/ Sodium Chloride (Phenergan Inj/ Nss 50ml) 50.5 ml @ 202 mls/hr Q6H PRN IV 08/14/16 16:30 09/13/16 16:29 Ondansetron HCl (Zofran Inj) 4 mg Q6H PRN IV 08/14/16 16:30 09/13/16 16:29 Metoclopramide HCl (Reglan Inj) 10 mg Q6H PRN IV 08/14/16 16:30 09/13/16 16:29 Lorazepam 0.5 mg 0.5 mg Q8H PRN PO 08/14/16 16:30 09/13/16 16:29 08/15/16 00:55 0.5 MG Lorazepam/Syringe (Ativan Inj/ Syringe) 0.25 ml @ 1 mls/min Q8H PRN IV 08/14/16 16:30 09/13/16 16:29 Pneumococcal Polysaccharide Vaccine 1 ea PRN PRN N/A 08/14/16 16:30 09/13/16 16:29 Influenza Virus Vacc Triv Types A&B 1 ea PRN PRN N/A 08/14/16 16:30 09/13/16 16:29 Polyethylene (Miralax Powder Packet) 17 gm Q6 PO 08/16/16 06:00 09/15/16 05:59 Bisacodyl (Dulcolax Supp) 10 mg DAILY PRN [place] 08/14/16 16:30 09/13/16 16:29 Magnesium Hydroxide (Milk Of Magnesia Susp) 30 ml DAILY PRN PO 08/14/16 16:30 09/13/16 16:29 Hydromorphone HCl (Dilaudid Inj) 0.5-1mg prn moder... Q3H PRN IV 08/15/16 06:00 08/29/16 05:59 Oxycodone HCl (Roxicodone Immediate Rel Tab) 5-10mg prn moderate to sev... Q4H PRN PO 08/15/16 06:00 08/29/16 05:59 Acetaminophen 1000 mg 1,000 mg Q8H PRN PO 08/14/16 16:30 09/13/16 16:29 Acetaminophen (Ofirmev Iv) 100 ml @ 400 mls/hr Q8H PRN IV 08/14/16 16:30 09/13/16 16:29 Naloxone HCl (Narcan Inj) 0.1 mg Q5M PRN IV 08/14/16 16:30 09/13/16 16:29 Senna/Docusate Sodium (Senokot S Tab) 2 tab HS PO 08/14/16 21:00 09/13/16 20:59 08/14/16 20:54 2 TAB Sodium Biphosphate/ Sodium Phosphate (Fleet Enema) 132 ml ONE PRN [place] 08/14/16 16:30 09/13/16 16:29 Hydroxyzine HCl (Vistaril Tab) 25 mg Q8H PRN PO 08/14/16 16:30 09/13/16 16:29 Al Hydroxide/Mg Hydroxide (Maalox Susp) 30 ml Q6H PRN PO 08/14/16 16:30 09/13/16 16:29 08/15/16 03:20 30 ML Famotidine (Pepcid Tab) 20 mg Q12 PRN PO 08/14/16 16:30 09/13/16 16:29 Diphenhydramine HCl (Benadryl Cap) 25 mg Q6H PRN PO 08/15/16 06:00 09/14/16 05:59 Aspirin (Ecotrin Tab) 81 mg QAM PO 08/15/16 09:00 09/14/16 08:59 Atorvastatin Calcium (Lipitor Tab) 40 mg QAM PO 08/15/16 09:00 09/14/16 08:59 Finasteride (Proscar Tab) 5 mg QPM PO 08/14/16 21:00 09/13/16 20:59 08/14/16 20:54 5 MG Gabapentin (Neurontin Cap) 300 mg TID PO 08/14/16 21:00 09/13/16 20:59 08/14/16 20:54 300 MG Hydrochlorothiazide (Hydrochlorothiazide Tab) 12.5 mg QAM PO 08/15/16 09:00 09/14/16 08:59 Future Hold Lisinopril (Zestril Tab) 40 mg QAM PO 08/15/16 09:00 09/14/16 08:59 Future Hold Tamsulosin HCl (Flomax Cap) 0.8 mg QPM PO 08/14/16 21:00 09/13/16 20:59 08/14/16 20:54 0.8 MG Venlafaxine HCl (effeXOR TAB) 37.5 mg QAM PO 08/15/16 09:00 09/14/16 08:59 Zolpidem Tartrate 5 mg 5 mg HSZ PO 08/15/16 22:00 09/14/16 21:59 Parenteral Electrolyte Solution (Normosol R) 1,000 ml @ 125 mls/hr Q8H IV 08/14/16 19:30 09/13/16 19:29 08/15/16 03:40 125 MLS/HR Oxycodone HCl (Oxycontin Tab) 10 mg Q12 PO 08/15/16 09:00 08/29/16 08:59 I & O: 24-Hour Column 08/15/16 07:59 Intake Total 6913 ml Output Total 3195 ml Balance 3718 ml Vital Signs: Date Time Temp Pulse Resp B/P Pulse Ox O2 Delivery O2 Flow Rate FiO2 08/15/16 07:20 96 Nasal Cannula 2.0 08/15/16 06:00 95 18 114/65 98 Nasal Cannula 2.0 08/15/16 05:00 98 16 109/67 98 Nasal Cannula 2.0 08/15/16 04:00 36.6 96 16 109/56 99 Nasal Cannula 2.0 08/15/16 03:58 98 Nasal Cannula 2.0 08/15/16 03:00 36.6 100 16 102/66 98 Room Air 08/15/16 02:00 97 16 119/61 94 Room Air 08/15/16 01:00 99 15 109/56 95 Room Air 08/15/16 00:00 36.7 99 16 104/53 92 Room Air 08/15/16 00:00 92 Room Air 08/14/16 23:00 96 11 109/67 95 Room Air 08/14/16 22:00 36.4 95 17 106/59 92 Room Air 08/14/16 21:30 90 17 114/61 94 08/14/16 21:00 98 23 118/67 94 08/14/16 20:44 91 18 111/79 92 08/14/16 20:30 97 22 109/57 94 08/14/16 20:00 94 Room Air 08/14/16 20:00 97 15 96/59 94 Room Air 08/14/16 19:59 97 15 96/59 90 Room Air 08/14/16 19:45 101 19 84/43 95 Room Air 08/14/16 19:30 103 18 103/50 97 Room Air 08/14/16 19:13 103 16 119/57 100 08/14/16 19:00 112 20 112/61 93 08/14/16 18:58 103 21 112/57 87 08/14/16 18:45 95 16 75/37 92 08/14/16 18:43 85 14 98/54 100 08/14/16 18:30 100 12 122/60 08/14/16 18:24 36.4 94 13 95/63 100 Nasal Cannula 3.0 08/14/16 18:15 36.2 08/14/16 18:00 93 16 89/57 100 Nasal Cannula 4 08/14/16 17:50 36.2 89 16 101/61 100 Nasal Cannula 4 08/14/16 17:40 36.1 85 16 86/52 100 Nasal Cannula 4 08/14/16 17:30 85 16 116/51 100 Mask 10 08/14/16 17:20 86 16 104/64 100 Mask 10 08/14/16 17:10 91 16 105/59 100 Mask 10 08/14/16 17:03 36.7 100 16 120/58 100 Mask 10 08/14/16 11:25 36.4 78 20 166/7 93 Room Air Laboratory Results: Last 24 Hours Test 08/14/16 15:06 08/14/16 17:52 08/14/16 21:08 08/14/16 21:10 Bedside Hemoglobin 10.2 g/dl Bedside Hematocrit 30 % Bedside Sodium 135 mEq/L Bedside Potassium 3.6 mEq/L Bedside Chloride 100 mEq/L Bedside Total CO2 27 mEq/l Anion Gap 13.0 mmol/L Bedside Blood Urea Nitrogen 13 mg/dl Bedside Creatinine 0.6 mg/dl Bedside Glucose (other) 146 mg/dl Bedside Ionized Calcium (Yuni) 1.21 mmol/l Hemoglobin 10.0 g/dL 9.5 g/dL Hematocrit 28.7 % 27.0 % White Blood Count 13.83 K/uL Red Blood Count 3.11 M/uL Mean Corpuscular Volume 86.8 fL Mean Corpuscular Hemoglobin 30.5 pg Mean Corpuscular Hemoglobin Concent 35.2 g/dl RDW Standard Deviation 44.6 fL RDW Coefficient of Variation 14.0 % Platelet Count 193 K/uL Mean Platelet Volume 10.7 fL Bedside Glucose 174 mg/dl Test 08/15/16 03:30 White Blood Count 12.68 K/uL Red Blood Count 2.94 M/uL Hemoglobin 8.8 g/dL Hematocrit 25.4 % Mean Corpuscular Volume 86.4 fL Mean Corpuscular Hemoglobin 29.9 pg Mean Corpuscular Hemoglobin Concent 34.6 g/dl Platelet Count 188 K/uL Mean Platelet Volume 10.5 fL Neutrophils (%) (Auto) 92.1 % Lymphocytes (%) (Auto) 3.8 % Monocytes (%) (Auto) 3.6 % Eosinophils (%) (Auto) 0.0 % Basophils (%) (Auto) 0.0 % Neutrophils # (Auto) 11.68 K/uL Lymphocytes # (Auto) 0.48 K/uL Monocytes # (Auto) 0.46 K/uL Eosinophils # (Auto) 0.00 K/uL Basophils # (Auto) 0.00 K/uL RDW Standard Deviation 44.9 fL RDW Coefficient of Variation 14.1 % Immature Granulocyte % (Auto) 0.5 % Immature Granulocyte # (Auto) 0.06 K/uL Red Blood Cell Morphology Unremarkable Sodium Level 136 mmol/L Potassium Level 4.6 mmol/L Chloride Level 101 mmol/L Carbon Dioxide Level 21 mmol/L Anion Gap 14.0 mmol/L Blood Urea Nitrogen 22 mg/dl Creatinine 1.50 mg/dl Est Creatinine Clear Calc Drug Dose 37.6 ml/min Estimated GFR () 48.2 Estimated GFR (Non- 41.6 BUN/Creatinine Ratio 14.6 Random Glucose 167 mg/dl Calcium Level 7.9 mg/dl
[2016-08-15 10:08] LABS: HEMATOCRIT 23.3 % (42-52); MEAN CELL VOLUME 84.4 fL (80-100); MEAN CORPUSCULAR HEMOGLOBIN 29.3 pg (25-34); MEAN CORPUSCULAR HGB CONC 34.8 g/dl (32-36); MEAN PLATELET VOLUME 9.2 fL (7.4-10.4); PLATELET COUNT 169 K/uL (130-400); RED BLOOD COUNT 2.76 M/uL (4.7-6.1); WHITE BLOOD COUNT 13.26 K/uL (4.8-10.8)
--- NOTE | 2016-08-15 10:11 | PROGRESS NOTE ---
DATE: 08/15/2016 DATE: 08/15/2016. SUBJECTIVE: Postop day 1. Back pain is controlled. Leg pain improved. Vital signs stable. T-max 36.7. RIVER drained 280 mL over the last shift. Hematocrit this a.m. is 25.4. OBJECTIVE: On exam he is sitting up in bed. He appears comfortable. He is alert and oriented, has excellent strength to testing. ASSESSMENT: Status post thoracolumbar fusion. PLAN: At this time, encourage him to get out of bed to chair, ambulate about the room if possible. Hopefully go to the orthopedic floor today, initiate more intensive physical therapy tomorrow.
--- NOTE | 2016-08-15 12:09 | Progress Note ---
Subjective Date of Service: Aug 15, 2016. Subjective Pt evaluation today including: conversation w/ patient, physical exam, chart review, lab review, review of inpatient medication list Review of Systems Constitutional: No chills, No fatigue, No fever, No problem reported, No see HPI, No sweats, No weakness, No weight loss Eyes: No diplopia, No discharge, No eye pain, No problem reported, No redness, No see HPI, No worsening of vision ENT: No dental problems, No hearing loss, No nasal symptoms, No problem reported, No see HPI, No sore throat, No tinnitus, No trouble swallowing, No unusual epistaxis Respiratory: No cough, No dyspnea at rest, No dyspnea on exertion, No hemoptysis, No problem reported, No see HPI, No shortness of breath, No sputum, No wheezing Cardiac: No PND, No chest pain, No claudication, No edema, No orthopnea, No palpitations, No problem reported, No see HPI Abdomen: No GI bleeding, No constipation, No diarrhea, No nausea, No pain, No problem reported, No see HPI, No vomiting Musculoskeletal: + joint pain, + muscle pain, No calf pain, No problem reported , No see HPI, No swelling Male : No dysuria, No hematuria, No incontinence, No nocturia more than once/ night, No problem reported, No see HPI, No sexual dysfunction, No slowing stream , No urinary frequency Psychiatric: No anhedonism, No anxiety, No depression symptoms, No insomnia, No problem reported, No see HPI, No substance abuse Heme: No abnormal bleeding/bruising, No clotting problems, No night sweats, No problem reported, No see HPI, No swollen lymph nodes Endo: No excessive thirst, No excessive urination, No fatigue, No problem reported, No see HPI Skin: No bleeding, No color change, No itch, No new/changing skin lesions, No problem reported, No rash, No see HPI Medications Current Inpatient Medications Medications (Trade) Dose Ordered Sig/Camille Route Start Time Stop Time Status Last Admin Dose Admin Dexamethasone Sodium Phosphate 6 mg/Syringe 1.5 ml @ 1 mls/min Q8H IV 08/14/16 20:00 08/15/16 12:02 08/15/16 03:40 1 MLS/MIN Promethazine HCl/ Sodium Chloride (Phenergan Inj/ Nss 50ml) 50.5 ml @ 202 mls/hr Q6H PRN IV 08/14/16 16:30 09/13/16 16:29 Ondansetron HCl (Zofran Inj) 4 mg Q6H PRN IV 08/14/16 16:30 09/13/16 16:29 Metoclopramide HCl (Reglan Inj) 10 mg Q6H PRN IV 08/14/16 16:30 09/13/16 16:29 Lorazepam 0.5 mg 0.5 mg Q8H PRN PO 08/14/16 16:30 09/13/16 16:29 08/15/16 00:55 0.5 MG Lorazepam/Syringe (Ativan Inj/ Syringe) 0.25 ml @ 1 mls/min Q8H PRN IV 08/14/16 16:30 09/13/16 16:29 Pneumococcal Polysaccharide Vaccine 1 ea PRN PRN N/A 08/14/16 16:30 09/13/16 16:29 Influenza Virus Vacc Triv Types A&B 1 ea PRN PRN N/A 08/14/16 16:30 09/13/16 16:29 Polyethylene (Miralax Powder Packet) 17 gm Q6 PO 08/16/16 06:00 09/15/16 05:59 Bisacodyl (Dulcolax Supp) 10 mg DAILY PRN MD 08/14/16 16:30 09/13/16 16:29 Magnesium Hydroxide (Milk Of Magnesia Susp) 30 ml DAILY PRN PO 08/14/16 16:30 09/13/16 16:29 Hydromorphone HCl (Dilaudid Inj) 0.5-1mg prn moder... Q3H PRN IV 08/15/16 06:00 08/29/16 05:59 Oxycodone HCl (Roxicodone Immediate Rel Tab) 5-10mg prn moderate to sev... Q4H PRN PO 08/15/16 06:00 08/29/16 05:59 Acetaminophen 1000 mg 1,000 mg Q8H PRN PO 08/14/16 16:30 09/13/16 16:29 Acetaminophen (Ofirmev Iv) 100 ml @ 400 mls/hr Q8H PRN IV 08/14/16 16:30 09/13/16 16:29 Naloxone HCl (Narcan Inj) 0.1 mg Q5M PRN IV 08/14/16 16:30 09/13/16 16:29 Senna/Docusate Sodium (Senokot S Tab) 2 tab HS PO 08/14/16 21:00 09/13/16 20:59 08/14/16 20:54 2 TAB Sodium Biphosphate/ Sodium Phosphate (Fleet Enema) 132 ml ONE PRN MD 08/14/16 16:30 09/13/16 16:29 Hydroxyzine HCl (Vistaril Tab) 25 mg Q8H PRN PO 08/14/16 16:30 09/13/16 16:29 Al Hydroxide/Mg Hydroxide (Maalox Susp) 30 ml Q6H PRN PO 08/14/16 16:30 09/13/16 16:29 08/15/16 03:20 30 ML Famotidine (Pepcid Tab) 20 mg Q12 PRN PO 08/14/16 16:30 09/13/16 16:29 Diphenhydramine HCl (Benadryl Cap) 25 mg Q6H PRN PO 08/15/16 06:00 09/14/16 05:59 Aspirin (Ecotrin Tab) 81 mg QAM PO 08/15/16 09:00 09/14/16 08:59 08/15/16 08:16 81 MG Atorvastatin Calcium (Lipitor Tab) 40 mg QAM PO 08/15/16 09:00 09/14/16 08:59 08/15/16 08:16 40 MG Finasteride (Proscar Tab) 5 mg QPM PO 08/14/16 21:00 09/13/16 20:59 08/14/16 20:54 5 MG Gabapentin (Neurontin Cap) 300 mg TID PO 08/14/16 21:00 09/13/16 20:59 08/15/16 08:17 300 MG Hydrochlorothiazide (Hydrochlorothiazide Tab) 12.5 mg QAM PO 08/15/16 09:00 09/14/16 08:59 Future Hold Lisinopril (Zestril Tab) 40 mg QAM PO 08/15/16 09:00 09/14/16 08:59 Future Hold Tamsulosin HCl (Flomax Cap) 0.8 mg QPM PO 08/14/16 21:00 09/13/16 20:59 08/14/16 20:54 0.8 MG Venlafaxine HCl (effeXOR TAB) 37.5 mg QAM PO 08/15/16 09:00 09/14/16 08:59 08/15/16 08:16 37.5 MG Zolpidem Tartrate 5 mg 5 mg HSZ PO 08/15/16 22:00 09/14/16 21:59 Parenteral Electrolyte Solution (Normosol R) 1,000 ml @ 125 mls/hr Q8H IV 08/14/16 19:30 09/13/16 19:29 08/15/16 03:40 125 MLS/HR Oxycodone HCl (Oxycontin Tab) 10 mg Q12 PO 08/15/16 09:00 08/29/16 08:59 08/15/16 08:18 10 MG Objective Vital Signs Date Time Temp Pulse Resp B/P Pulse Ox O2 Delivery O2 Flow Rate FiO2 08/15/16 09:00 93 18 148/57 98 08/15/16 08:58 96 18 143/68 97 08/15/16 08:00 109 25 81/45 96 08/15/16 07:58 36.7 108 17 134/62 97 Nasal Cannula 2.0 08/15/16 07:20 96 Nasal Cannula 2.0 08/15/16 07:00 95 12 111/54 98 08/15/16 06:00 95 18 114/65 98 Nasal Cannula 2.0 08/15/16 05:00 98 16 109/67 98 Nasal Cannula 2.0 08/15/16 04:00 36.6 96 16 109/56 99 Nasal Cannula 2.0 08/15/16 03:58 98 Nasal Cannula 2.0 08/15/16 03:00 36.6 100 16 102/66 98 Room Air 08/15/16 02:00 97 16 119/61 94 Room Air 08/15/16 01:00 99 15 109/56 95 Room Air 08/15/16 00:00 36.7 99 16 104/53 92 Room Air 08/15/16 00:00 92 Room Air 08/14/16 23:00 96 11 109/67 95 Room Air 08/14/16 22:00 36.4 95 17 106/59 92 Room Air 08/14/16 21:30 90 17 114/61 94 08/14/16 21:00 98 23 118/67 94 08/14/16 20:44 91 18 111/79 92 08/14/16 20:30 97 22 109/57 94 08/14/16 20:00 94 Room Air 08/14/16 20:00 97 15 96/59 94 Room Air 08/14/16 19:59 97 15 96/59 90 Room Air 08/14/16 19:45 101 19 84/43 95 Room Air 08/14/16 19:30 103 18 103/50 97 Room Air 08/14/16 19:13 103 16 119/57 100 08/14/16 19:00 112 20 112/61 93 08/14/16 18:58 103 21 112/57 87 08/14/16 18:45 95 16 75/37 92 08/14/16 18:43 85 14 98/54 100 08/14/16 18:30 100 12 122/60 08/14/16 18:24 36.4 94 13 95/63 100 Nasal Cannula 3.0 08/14/16 18:15 36.2 08/14/16 18:00 93 16 89/57 100 Nasal Cannula 4 08/14/16 17:50 36.2 89 16 101/61 100 Nasal Cannula 4 08/14/16 17:40 36.1 85 16 86/52 100 Nasal Cannula 4 08/14/16 17:30 85 16 116/51 100 Mask 10 08/14/16 17:20 86 16 104/64 100 Mask 10 08/14/16 17:10 91 16 105/59 100 Mask 10 08/14/16 17:03 36.7 100 16 120/58 100 Mask 10 Physical Exam General Appearance: WD/WN, no apparent distress Eyes: normal inspection, EOMI ENT: normal ENT inspection, hearing grossly normal, TMs normal, pharynx normal Neck: supple, no adenopathy, thyroid normal, no JVD Respiratory/Chest: chest non-tender, lungs clear, normal breath sounds, no respiratory distress, no accessory muscle use Cardiovascular: regular rate, rhythm, no edema, no gallop, no JVD, no murmur Abdomen: normal bowel sounds, non tender, soft, no organomegaly Extremities: normal range of motion, non-tender, normal inspection, no pedal edema, no calf tenderness Neurologic/Psychiatric: grade and center marker II-XII nml as tested, no motor/sensory deficits, alert, normal mood/affect, oriented x 3 Skin: normal color, warm/dry, no rash Laboratory Results Last 24 Hours Test 08/14/16 15:06 08/14/16 17:52 08/14/16 21:08 08/14/16 21:10 Bedside Hemoglobin 10.2 g/dl Bedside Hematocrit 30 % Bedside Sodium 135 mEq/L Bedside Potassium 3.6 mEq/L Bedside Chloride 100 mEq/L Bedside Total CO2 27 mEq/l Anion Gap 13.0 mmol/L Bedside Blood Urea Nitrogen 13 mg/dl Bedside Creatinine 0.6 mg/dl Bedside Glucose (other) 146 mg/dl Bedside Ionized Calcium (Yuni) 1.21 mmol/l Hemoglobin 10.0 g/dL 9.5 g/dL Hematocrit 28.7 % 27.0 % White Blood Count 13.83 K/uL Red Blood Count 3.11 M/uL Mean Corpuscular Volume 86.8 fL Mean Corpuscular Hemoglobin 30.5 pg Mean Corpuscular Hemoglobin Concent 35.2 g/dl RDW Standard Deviation 44.6 fL RDW Coefficient of Variation 14.0 % Platelet Count 193 K/uL Mean Platelet Volume 10.7 fL Bedside Glucose 174 mg/dl Test 08/15/16 03:30 08/15/16 10:00 White Blood Count 12.68 K/uL 13.26 K/uL Red Blood Count 2.94 M/uL 2.76 M/uL Hemoglobin 8.8 g/dL 8.1 g/dL Hematocrit 25.4 % 23.3 % Mean Corpuscular Volume 86.4 fL 84.4 fL Mean Corpuscular Hemoglobin 29.9 pg 29.3 pg Mean Corpuscular Hemoglobin Concent 34.6 g/dl 34.8 g/dl Platelet Count 188 K/uL 169 K/uL Mean Platelet Volume 10.5 fL 9.2 fL Neutrophils (%) (Auto) 92.1 % Lymphocytes (%) (Auto) 3.8 % Monocytes (%) (Auto) 3.6 % Eosinophils (%) (Auto) 0.0 % Basophils (%) (Auto) 0.0 % Neutrophils # (Auto) 11.68 K/uL Lymphocytes # (Auto) 0.48 K/uL Monocytes # (Auto) 0.46 K/uL Eosinophils # (Auto) 0.00 K/uL Basophils # (Auto) 0.00 K/uL RDW Standard Deviation 44.9 fL 43.7 fL RDW Coefficient of Variation 14.1 % 14.2 % Immature Granulocyte % (Auto) 0.5 % Immature Granulocyte # (Auto) 0.06 K/uL Red Blood Cell Morphology Unremarkable Sodium Level 136 mmol/L Potassium Level 4.6 mmol/L Chloride Level 101 mmol/L Carbon Dioxide Level 21 mmol/L Anion Gap 14.0 mmol/L Blood Urea Nitrogen 22 mg/dl Creatinine 1.50 mg/dl Est Creatinine Clear Calc Drug Dose 37.6 ml/min Estimated GFR () 48.2 Estimated GFR (Non- 41.6 BUN/Creatinine Ratio 14.6 Random Glucose 167 mg/dl Calcium Level 7.9 mg/dl Assessment and Plan 86 years old man admitted for elective back surgery, S/P Exploration of fusion L2-L3, L3-L4, L4-L5, Lumbar decompression, medial facetectomies, foraminotomies L1-L2, L5-S1, Posterior spinal fusion T10-S1, Bilateral SI joint fusions, Placement of posterior segmental instrumentation using Medicrea rods and screws T11-S1 with bilateral iliac bolts, Infuse collagen sponge combined with Mastergraft placed in the posterolateral gutters and bilateral SI joints Placement of locally harvested morcellized autograft in the placed in the posterior gutters. During the procedure the pt had an estimated blood loss of 1200cc and became hypotensive requiring transfusion of 2U PRBC, aggressive fluid resuscitation and temporary pressor support. Hypotension: multi factorial, dehydration/blood loss and possible temporarily relative adrenal insufficiency currently BP is stable without any pressure support stable to transfer to Telemetry continue to monitor continue IVF Hold HCTZ and Lisinopril Acute blood loss anemia Hgb is 8.1 now, will transfuse 2 more units slowly DVT proph: Hold oral anticoagulation s/p surgery, SCDs
[2016-08-15] MEDS: OXYCODONE HCL IR 5 MG TAB (IMMEDIATE RELEASE) PO PRN ×3 (12:53→23:41)
[2016-08-15] MEDS: DOCUSATE SODIUM/SENNA 50/8.6MG TAB PO SCH (21:01)
[2016-08-15] MEDS: FINASTERIDE 5 MG TAB PO SCH (21:01)
[2016-08-15] MEDS: TAMSULOSIN HCL 0.4 MG CAP PO SCH (21:02)
[2016-08-15] MEDS: ZOLPIDEM TARTRATE 5 MG TAB PO SCH (22:11)
[2016-08-16] VITALS (8 sets, daily range): BP systolic 126–163; BP diastolic 62–76; PULSE 87–107; TEMP 36.4–37.5; O2SAT 90–94
[2016-08-16] LABS: HEMATOCRIT 28.9 % (42-52); MEAN CELL VOLUME 84.8 fL (80-100); MEAN CORPUSCULAR HGB CONC 34.3 g/dl (32-36); MEAN PLATELET VOLUME 10.4 fL (7.4-10.4); PLATELET COUNT 155 K/uL (130-400); RED BLOOD COUNT 3.41 M/uL (4.7-6.1); WHITE BLOOD COUNT 15.51 K/uL (4.8-10.8)
[2016-08-16] MEDS: POLYETHYLENE (MIRALAX) 17 GM PACK PO SCH ×4 (05:54→23:23)
[2016-08-16 05:58] LABS: COMPLETE YES; HEMATOCRIT 27.4 % (42-52); IG% 0.4 %; LYMPH % 11.4 %; LYMPH ABS # 1.37 K/uL (1.2-3.4); MEAN CELL VOLUME 85.4 fL (80-100); MEAN CORPUSCULAR HEMOGLOBIN 29.3 pg (25-34); MEAN CORPUSCULAR HGB CONC 34.3 g/dl (32-36); MEAN PLATELET VOLUME 10.5 fL (7.4-10.4); MONO % 7.7 %; NEUT % 80.5 %; PLATELET COUNT 155 K/uL (130-400); RED BLOOD COUNT 3.21 M/uL (4.7-6.1)
[2016-08-16 06:36] LABS: ALB/GLOB RATIO 1.3 (0.9-2); BUN/CREATININE RATIO 21.6 (10-20); CREATININE 0.95 mg/dl (0.60-1.40); MAGNESIUM 2.2 mg/dl (1.8-2.4)
[2016-08-16] MEDS: OXYCODONE HCL IR 5 MG TAB (IMMEDIATE RELEASE) PO PRN ×3 (07:47→17:00)
[2016-08-16] MEDS: NORMOSOL R 1,000 ML IV SCH ×2 (09:20→18:31)
[2016-08-16] MEDS: GABAPENTIN 300 MG CAP PO SCH ×3 (09:21→20:57)
[2016-08-16] MEDS: OXYCODONE HCL 10 MG TABCR (OXYCONTIN) PO SCH ×2 (09:21→20:58)
[2016-08-16] MEDS: VENLAFAXINE HCL 37.5 MG TAB PO SCH (09:21)
[2016-08-16] MEDS: ASPIRIN 81 MG ECTAB PO SCH (09:21)
[2016-08-16] MEDS: ATORVASTATIN 40 MG TAB PO SCH (09:21)
--- NOTE | 2016-08-16 13:58 | Progress Note ---
Subjective Date of Service: Aug 16, 2016. Subjective Pt evaluation today including: conversation w/ patient, physical exam, chart review, lab review Review of Systems Constitutional: No chills, No fatigue, No fever, No problem reported, No see HPI, No sweats, No weakness, No weight loss Eyes: No diplopia, No discharge, No eye pain, No problem reported, No redness, No see HPI, No worsening of vision ENT: No dental problems, No hearing loss, No nasal symptoms, No problem reported, No see HPI, No sore throat, No tinnitus, No trouble swallowing, No unusual epistaxis Respiratory: No cough, No dyspnea at rest, No dyspnea on exertion, No hemoptysis, No problem reported, No see HPI, No shortness of breath, No sputum, No wheezing Cardiac: No PND, No chest pain, No claudication, No edema, No orthopnea, No palpitations, No problem reported, No see HPI Abdomen: No GI bleeding, No constipation, No diarrhea, No nausea, No pain, No problem reported, No see HPI, No vomiting Musculoskeletal: + joint pain Male : No dysuria, No hematuria, No incontinence, No nocturia more than once/ night, No problem reported, No see HPI, No sexual dysfunction, No slowing stream , No urinary frequency Neurologic: No balance problems, No memory loss, No numbness/tingling, No paralysis, No problem reported, No see HPI, No vertigo, No weakness Psychiatric: No anhedonism, No anxiety, No depression symptoms, No insomnia, No problem reported, No see HPI, No substance abuse Heme: No abnormal bleeding/bruising, No clotting problems, No night sweats, No problem reported, No see HPI, No swollen lymph nodes Endo: No excessive thirst, No excessive urination, No fatigue, No problem reported, No see HPI Skin: No bleeding, No color change, No itch, No new/changing skin lesions, No problem reported, No rash, No see HPI Medications Current Inpatient Medications Medications (Trade) Dose Ordered Sig/Camille Route Start Time Stop Time Status Last Admin Dose Admin Promethazine HCl/ Sodium Chloride (Phenergan Inj/ Nss 50ml) 50.5 ml @ 202 mls/hr Q6H PRN IV 08/14/16 16:30 09/13/16 16:29 Ondansetron HCl (Zofran Inj) 4 mg Q6H PRN IV 08/14/16 16:30 09/13/16 16:29 Metoclopramide HCl (Reglan Inj) 10 mg Q6H PRN IV 08/14/16 16:30 09/13/16 16:29 Lorazepam 0.5 mg 0.5 mg Q8H PRN PO 08/14/16 16:30 09/13/16 16:29 08/15/16 22:11 0.5 MG Lorazepam/Syringe (Ativan Inj/ Syringe) 0.25 ml @ 1 mls/min Q8H PRN IV 08/14/16 16:30 09/13/16 16:29 Pneumococcal Polysaccharide Vaccine 1 ea PRN PRN N/A 08/14/16 16:30 09/13/16 16:29 Influenza Virus Vacc Triv Types A&B 1 ea PRN PRN N/A 08/14/16 16:30 09/13/16 16:29 Polyethylene (Miralax Powder Packet) 17 gm Q6 PO 08/16/16 06:00 09/15/16 05:59 08/16/16 11:45 17 GM Bisacodyl (Dulcolax Supp) 10 mg DAILY PRN ND 08/14/16 16:30 09/13/16 16:29 Magnesium Hydroxide (Milk Of Magnesia Susp) 30 ml DAILY PRN PO 08/14/16 16:30 09/13/16 16:29 Hydromorphone HCl (Dilaudid Inj) 0.5-1mg prn moder... Q3H PRN IV 08/15/16 06:00 08/29/16 05:59 Oxycodone HCl (Roxicodone Immediate Rel Tab) 5-10mg prn moderate to sev... Q4H PRN PO 08/15/16 06:00 08/29/16 05:59 08/16/16 11:46 10 MG Acetaminophen 1000 mg 1,000 mg Q8H PRN PO 08/14/16 16:30 09/13/16 16:29 Acetaminophen (Ofirmev Iv) 100 ml @ 400 mls/hr Q8H PRN IV 08/14/16 16:30 09/13/16 16:29 Naloxone HCl (Narcan Inj) 0.1 mg Q5M PRN IV 08/14/16 16:30 09/13/16 16:29 Senna/Docusate Sodium (Senokot S Tab) 2 tab HS PO 08/14/16 21:00 09/13/16 20:59 08/15/16 21:01 2 TAB Sodium Biphosphate/ Sodium Phosphate (Fleet Enema) 132 ml ONE PRN ND 08/14/16 16:30 09/13/16 16:29 Hydroxyzine HCl (Vistaril Tab) 25 mg Q8H PRN PO 08/14/16 16:30 09/13/16 16:29 Al Hydroxide/Mg Hydroxide (Maalox Susp) 30 ml Q6H PRN PO 08/14/16 16:30 09/13/16 16:29 08/15/16 23:40 30 ML Famotidine (Pepcid Tab) 20 mg Q12 PRN PO 08/14/16 16:30 09/13/16 16:29 Diphenhydramine HCl (Benadryl Cap) 25 mg Q6H PRN PO 08/15/16 06:00 09/14/16 05:59 Aspirin (Ecotrin Tab) 81 mg QAM PO 08/15/16 09:00 09/14/16 08:59 08/16/16 09:21 81 MG Atorvastatin Calcium (Lipitor Tab) 40 mg QAM PO 08/15/16 09:00 09/14/16 08:59 08/16/16 09:21 40 MG Finasteride (Proscar Tab) 5 mg QPM PO 08/14/16 21:00 09/13/16 20:59 08/15/16 21:01 5 MG Gabapentin (Neurontin Cap) 300 mg TID PO 08/14/16 21:00 09/13/16 20:59 08/16/16 09:21 300 MG Hydrochlorothiazide (Hydrochlorothiazide Tab) 12.5 mg QAM PO 08/15/16 09:00 09/14/16 08:59 Future Hold Lisinopril (Zestril Tab) 40 mg QAM PO 08/15/16 09:00 09/14/16 08:59 Future Hold Tamsulosin HCl (Flomax Cap) 0.8 mg QPM PO 08/14/16 21:00 09/13/16 20:59 08/15/16 21:02 0.8 MG Venlafaxine HCl (effeXOR TAB) 37.5 mg QAM PO 08/15/16 09:00 09/14/16 08:59 08/16/16 09:21 37.5 MG Zolpidem Tartrate 5 mg 5 mg HSZ PO 08/15/16 22:00 09/14/16 21:59 08/15/16 22:11 5 MG Parenteral Electrolyte Solution (Normosol R) 1,000 ml @ 125 mls/hr Q8H IV 08/14/16 19:30 09/13/16 19:29 08/16/16 09:20 125 MLS/HR Oxycodone HCl (Oxycontin Tab) 10 mg Q12 PO 08/15/16 09:00 08/29/16 08:59 08/16/16 09:21 10 MG Objective Vital Signs Date Time Temp Pulse Resp B/P Pulse Ox O2 Delivery O2 Flow Rate FiO2 08/16/16 11:18 36.4 87 16 163/73 92 08/16/16 08:00 90 Room Air 08/16/16 07:40 36.4 98 18 126/66 90 Room Air 08/16/16 04:00 Room Air 08/16/16 03:59 36.9 101 18 134/74 93 Room Air 08/15/16 23:59 Room Air 08/15/16 23:09 37.1 102 18 180/85 93 Room Air 08/15/16 20:45 37.0 96 22 178/88 96 Room Air 08/15/16 20:00 37.3 102 23 162/69 96 2.0 08/15/16 19:00 36.7 108 24 152/70 96 2.0 08/15/16 19:00 36.7 104 21 152/70 97 2.0 08/15/16 18:38 109 22 168/48 95 08/15/16 18:18 98 28 166/74 96 08/15/16 18:03 36.4 101 16 145/82 94 08/15/16 17:45 37.0 102 20 154/74 97 08/15/16 17:00 110 18 97 08/15/16 16:58 37.0 112 18 141/71 97 Nasal Cannula 2.0 08/15/16 16:45 116 22 97 08/15/16 16:43 110 20 146/92 98 Nasal Cannula 2.0 08/15/16 16:30 98 15 98 08/15/16 16:15 94 23 98 08/15/16 16:13 37.0 95 18 148/84 98 Nasal Cannula 2.0 08/15/16 16:00 95 12 96 08/15/16 15:58 90 20 133/61 98 08/15/16 15:45 94 21 93 08/15/16 15:43 37.0 93 17 139/64 97 Nasal Cannula 2.0 08/15/16 15:30 90 23 98 08/15/16 15:29 91 15 156/73 08/15/16 15:23 99 Nasal Cannula 2.0 08/15/16 15:15 92 15 98 08/15/16 15:13 37.1 95 18 141/64 96 Nasal Cannula 2.0 08/15/16 15:00 92 16 98 08/15/16 14:58 37.1 94 21 122/63 98 Nasal Cannula 2.0 08/15/16 14:45 37.1 95 17 98 Nasal Cannula 2.0 08/15/16 14:30 94 95 Physical Exam General Appearance: WD/WN, no apparent distress Eyes: normal inspection, EOMI ENT: normal ENT inspection, hearing grossly normal Neck: supple Respiratory/Chest: chest non-tender, lungs clear, normal breath sounds, no respiratory distress, no accessory muscle use Cardiovascular: regular rate, rhythm, no edema, no gallop, no JVD, no murmur Abdomen: normal bowel sounds, non tender, soft, no organomegaly Extremities: normal range of motion, non-tender, normal inspection, no pedal edema, no calf tenderness Neurologic/Psychiatric: 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 II-XII nml as tested, no motor/sensory deficits, alert, normal mood/affect, oriented x 3 Skin: normal color, warm/dry, no rash Laboratory Results Last 24 Hours Test 08/15/16 23:35 08/16/16 05:09 White Blood Count 15.51 K/uL 12.00 K/uL Red Blood Count 3.41 M/uL 3.21 M/uL Hemoglobin 9.9 g/dL 9.4 g/dL Hematocrit 28.9 % 27.4 % Mean Corpuscular Volume 84.8 fL 85.4 fL Mean Corpuscular Hemoglobin 29.0 pg 29.3 pg Mean Corpuscular Hemoglobin Concent 34.3 g/dl 34.3 g/dl RDW Standard Deviation 45.1 fL 46.2 fL RDW Coefficient of Variation 14.5 % 14.6 % Platelet Count 155 K/uL 155 K/uL Mean Platelet Volume 10.4 fL 10.5 fL Neutrophils (%) (Auto) 80.5 % Lymphocytes (%) (Auto) 11.4 % Monocytes (%) (Auto) 7.7 % Eosinophils (%) (Auto) 0.0 % Basophils (%) (Auto) 0.0 % Neutrophils # (Auto) 9.66 K/uL Lymphocytes # (Auto) 1.37 K/uL Monocytes # (Auto) 0.92 K/uL Eosinophils # (Auto) 0.00 K/uL Basophils # (Auto) 0.00 K/uL Immature Granulocyte % (Auto) 0.4 % Immature Granulocyte # (Auto) 0.05 K/uL Sodium Level 140 mmol/L Potassium Level 4.0 mmol/L Chloride Level 104 mmol/L Carbon Dioxide Level 28 mmol/L Anion Gap 8.0 mmol/L Blood Urea Nitrogen 21 mg/dl Creatinine 0.95 mg/dl Est Creatinine Clear Calc Drug Dose 59.4 ml/min Estimated GFR () 83.7 Estimated GFR (Non- 72.2 BUN/Creatinine Ratio 21.6 Random Glucose 108 mg/dl Calcium Level 8.0 mg/dl Phosphorus Level 2.0 mg/dl Magnesium Level 2.2 mg/dl Total Bilirubin 0.5 mg/dl Aspartate Amino Transf (AST/SGOT) 24 U/L Alanine Aminotransferase (ALT/SGPT) 17 U/L Alkaline Phosphatase 43 U/L Total Protein 5.1 gm/dl Albumin 2.9 gm/dl Globulin 2.2 gm/dl Albumin/Globulin Ratio 1.3 Assessment and Plan 86 years old man admitted for elective back surgery, S/P Exploration of fusion L2-L3, L3-L4, L4-L5, Lumbar decompression, medial facetectomies, foraminotomies L1-L2, L5-S1, Posterior spinal fusion T10-S1, Bilateral SI joint fusions, Placement of posterior segmental instrumentation using Medicrea rods and screws T11-S1 with bilateral iliac bolts, Infuse collagen sponge combined with Mastergraft placed in the posterolateral gutters and bilateral SI joints Placement of locally harvested morcellized autograft in the placed in the posterior gutters. During the procedure the pt had an estimated blood loss of 1200cc and became hypotensive requiring transfusion of 2U PRBC, aggressive fluid resuscitation and temporary pressor support. Hypotension/ resolved: multi factorial, dehydration/blood loss and possible temporarily relative adrenal insufficiency currently BP is stable without any pressure support continue to monitor continue Holding HCTZ and Lisinopril Acute blood loss anemia Hgb is 8.1 now, S/P transfuse 4 units slowly currently is 9.5 and stable Lower back pain continue pain management JOSE ANGEL/likely from hypotension renal function improved DVT proph: Hold oral anticoagulation s/p surgery, SCDs
--- NOTE | 2016-08-16 14:01 | PROGRESS NOTE ---
DATE: 08/16/2016 SUBJECTIVE: He is quite comfortable today, is in a chair at bedside. He has good strength to testing. He has completed a course of physical therapy and tolerated this well. Vital signs are stable. T-max 36.9. RIVER drained 100 mL this morning. Hematocrit 27.4. PHYSICAL EXAMINATION: He has good strength to testing. He is alert and oriented, quite comfortable. ASSESSMENT: Status post thoracolumbar fusion. PLAN: At this time, hoping that he will be able to transition to the orthopedic floor today or tomorrow. Continue physical therapy, advance his bowel regimen. We will have him fitted for a TLSO brace. This is to be worn only with ambulation to help provide some additional stabilization secondary to the extent of the procedure. He understands and agrees.
[2016-08-16] MEDS: ALUMINUM/MAGNESIUM SUSP 30 ML UDC PO PRN (20:27)
[2016-08-16] MEDS: TAMSULOSIN HCL 0.4 MG CAP PO SCH (20:57)
[2016-08-16] MEDS: FINASTERIDE 5 MG TAB PO SCH (20:57)
[2016-08-16] MEDS: DOCUSATE SODIUM/SENNA 50/8.6MG TAB PO SCH (20:57)
[2016-08-16] MEDS: ZOLPIDEM TARTRATE 5 MG TAB PO SCH (20:58)
[2016-08-16] MEDS: LORAZEPAM 0.5 MG TAB PO PRN (21:03)
[2016-08-17 03:45] VITALS: BP 155/80; PULSE 92; TEMP 36.8; O2SAT 94
[2016-08-17] MEDS: NORMOSOL R 1,000 ML IV SCH ×3 (04:49→19:42)
[2016-08-17 05:41] LABS: BASO % 0.1 %; BASO ABS # 0.01 K/uL (0-0.2); COMPLETE YES; EOS % 0.6 %; HEMATOCRIT 26.7 % (42-52); IG% 0.5 %; LYMPH ABS # 1.67 K/uL (1.2-3.4); MEAN CELL VOLUME 86.1 fL (80-100); MEAN CORPUSCULAR HGB CONC 33.7 g/dl (32-36); MEAN PLATELET VOLUME 10.4 fL (7.4-10.4); MONO % 9.6 %; NEUT % 71.2 %; PLATELET COUNT 141 K/uL (130-400); WHITE BLOOD COUNT 9.28 K/uL (4.8-10.8)
[2016-08-17] MEDS: POLYETHYLENE (MIRALAX) 17 GM PACK PO SCH ×3 (05:59→18:00)
[2016-08-17] MEDS: OXYCODONE HCL IR 5 MG TAB (IMMEDIATE RELEASE) PO PRN ×2 (05:59→10:23)
[2016-08-17 06:25] LABS: BUN/CREATININE RATIO 16.7 (10-20); CALCIUM 7.7 mg/dl (8.5-10.1); CREATININE 0.81 mg/dl (0.60-1.40); MAGNESIUM 2.1 mg/dl (1.8-2.4); PHOSPHORUS 1.9 mg/dl (2.5-4.9); POTASSIUM 3.9 mmol/L (3.5-5.1)
[2016-08-17 07:22] VITALS: BP 175/73; PULSE 89; TEMP 37.2; O2SAT 94
--- NOTE | 2016-08-17 08:22 | Anesthesiology Progress Note ---
Anesthesia Post Op Note Date & Time Aug 17, 2016 at 08:21 Vital Signs Pain Intensity: 8.0 Vital Signs Past 12 Hours Date Time Temp Pulse Resp B/P Pulse Ox O2 Delivery O2 Flow Rate FiO2 08/17/16 07:22 37.2 89 18 175/73 94 Room Air 08/17/16 04:00 Room Air 08/17/16 03:45 36.8 92 18 155/80 94 Room Air 08/16/16 23:59 Room Air 08/16/16 23:45 37.2 97 18 151/76 92 Room Air 08/16/16 20:30 37.5 107 20 163/62 94 Room Air Notes Mental Status: alert / awake / arousable, participated in evaluation Pt Amnestic to Procedure: Yes Nausea / Vomiting: adequately controlled Pain: adequately controlled Airway Patency, RR, SpO2: stable & adequate BP & HR: stable & adequate Hydration State: stable & adequate Anesthetic Complications: no major complications apparent
[2016-08-17] MEDS: GABAPENTIN 300 MG CAP PO SCH ×3 (09:05→19:43)
[2016-08-17] MEDS: ASPIRIN 81 MG ECTAB PO SCH (09:05)
[2016-08-17] MEDS: VENLAFAXINE HCL 37.5 MG TAB PO SCH (09:05)
[2016-08-17] MEDS: OXYCODONE HCL 10 MG TABCR (OXYCONTIN) PO SCH ×2 (09:05→19:42)
[2016-08-17] MEDS: ATORVASTATIN 40 MG TAB PO SCH (09:05)
[2016-08-17] MEDS: FAMOTIDINE 20 MG TAB PO PRN (09:31)
[2016-08-17] MEDS ORDERED: COUGH DROP (SUGAR FREE) LOZ 24 LOZ/1 BOX PO PRN (10:00)
--- NOTE | 2016-08-17 10:28 | Clinical Documentation Query ---
CLINICAL DOCUMENTATION QUERY 86-y/o male who has undergone T10-S1 fusion to include bilateral SI joints. This patient lost a large volume of blood during surgery and required ICU hemodynamic monitoring. In your clinical opinion is this patient being managed for: ( ) Hemorrhagic Shock in setting of surgery treated with IV pressor support, IVF boluses, 4 total units of PRBC's, and ICU hemodynamic monitoring. ( ) Other explanation of clinical findings (Please Explain) ( ) Unable to determine (Please Define) ( ) Need to Discuss ( ) Not Agree The medical record reflects the following clinical findings, treatment, and risk factors. Clinical Indicators: BP fell to 80's/50's in surgery. Stat H/H during case H/H 10.2/. Documented EBL of 1250. Treatment: Post op ICU hemodynamic monitoring, 2 units of PRBC's, 3L of IV boluses during sx and IV Pressor therapy during case, and an additional 2 units of PRBC's Risk Factors: Age, major extended spinal surgery. Please clarify and document your clinical opinion in the progress notes and discharge summary. Terms such as "probable", "suspected", "likely", "questionable", "possible", or "still to be ruled out" are acceptable. IF IN AGREEMENT, YOU MUST DOCUMENT ABOVE DIAGNOSTIC STATEMENT IN DAILY PROGRESS NOTES AND DISCHARGE SUMMARY. This document is not part of the patient's record. Thank You, Jovany Reza, BI [phone]
--- NOTE | 2016-08-17 10:31 | Clinical Documentation Query ---
CLINICAL DOCUMENTATION QUERY 86-y/o male who has undergone T10-S1 fusion to include bilateral SI joints. This patient lost a large volume of blood during surgery and required ICU hemodynamic monitoring. In your clinical opinion is this patient being managed for: (X ) Hemorrhagic Shock in setting of surgery treated with IV pressor support, IVF boluses, 4 total units of PRBC's, and ICU hemodynamic monitoring. ( ) Other explanation of clinical findings (Please Explain) ( ) Unable to determine (Please Define) ( ) Need to Discuss ( ) Not Agree The medical record reflects the following clinical findings, treatment, and risk factors. Clinical Indicators: BP fell to 80's/50's in surgery. Preop H/H was 13.7/40 Stat H/H during case H/H 10.2/30. Documented EBL of 1250mls. Treatment: Post op ICU hemodynamic monitoring, 2 units of PRBC's, 3L of IV boluses during sx and IV Pressor therapy during case, and an additional 2 units of PRBC's Risk Factors: Age, major extended spinal surgery. Please clarify and document your clinical opinion in the progress notes and discharge summary. Terms such as "probable", "suspected", "likely", "questionable", "possible", or "still to be ruled out" are acceptable. IF IN AGREEMENT, YOU MUST DOCUMENT ABOVE DIAGNOSTIC STATEMENT IN DAILY PROGRESS NOTES AND DISCHARGE SUMMARY. This document is not part of the patient's record. Thank You, Jovany Reza, BI [phone]
--- NOTE | 2016-08-17 10:52 | Hospitalist Progress Note ---
Hospitalist Progress Note Date of Service Aug 17, 2016. (Danya Roberts ., PA-C) Subjective Pt evaluation today including: conversation w/ patient, physical exam, chart review, review of inpatient medication list PO Intake: Tolerating PO diet, decreased appetite Voiding: liu catheter in place Patient reports not feeling well. He states that his throat hurts whenever he swallows, which has been occurring since surgery. As a result of the pain, he has not been eating as much. He states that this morning he did have some nausea while he was eating his oatmeal, but it resolved on its own. He denies any vomiting. He currently denies any back pain now, but he experiences pain whenever he moves too much or during physical therapy. He has been passing gas but denies any bowel movements yet post operatively. Liu catheter is in place. The patient denies fevers, chills, sweats, chest pain, palpitations, claudication, cough, wheezing, shortness of breath, vomiting, abdominal pain, dysuria, hematuria, urinary retention, paralysis, weakness, numbness and tingling. Additional Comments: See HPI for pertinent positives and negatives. All other systems reviewed and negative. (Danya Roberts ., PA-C) Objective Vital Signs Date Time Temp Pulse Resp B/P Pulse Ox O2 Delivery O2 Flow Rate FiO2 08/17/16 07:22 37.2 89 18 175/73 94 Room Air 08/17/16 04:00 Room Air 08/17/16 03:45 36.8 92 18 155/80 94 Room Air 08/16/16 23:59 Room Air 08/16/16 23:45 37.2 97 18 151/76 92 Room Air 08/16/16 20:30 37.5 107 20 163/62 94 Room Air 08/16/16 20:00 Room Air 08/16/16 16:00 92 Room Air 08/16/16 15:53 36.8 90 20 157/72 92 Room Air 08/16/16 11:18 36.4 87 16 163/73 92 (Danya Roberts ., PA-C) Physical Exam General Appearance: WD/WN, no apparent distress Eyes: normal inspection, PERRL, EOMI ENT: normal ENT inspection, hearing grossly normal, + pertinent finding ( erythematous area in back of pharynx likely tube trauma from surgery) Neck: supple, no JVD, trachea midline Respiratory/Chest: lungs clear, normal breath sounds, no respiratory distress Cardiovascular: regular rate, rhythm, no gallop, + systolic murmur Abdomen: normal bowel sounds, non tender, soft Extremities: non-tender, normal inspection, no pedal edema Neurologic/Psychiatric: alert, normal mood/affect, oriented x 3 Skin: normal color, warm/dry, no rash (Danya Roberts ., LAK[place]) Laboratory Results Last 24 Hours Test 08/17/16 05:15 08/17/16 09:38 White Blood Count 9.28 K/uL Red Blood Count 3.10 M/uL Hemoglobin 9.0 g/dL Hematocrit 26.7 % Mean Corpuscular Volume 86.1 fL Mean Corpuscular Hemoglobin 29.0 pg Mean Corpuscular Hemoglobin Concent 33.7 g/dl Platelet Count 141 K/uL Mean Platelet Volume 10.4 fL Neutrophils (%) (Auto) 71.2 % Lymphocytes (%) (Auto) 18.0 % Monocytes (%) (Auto) 9.6 % Eosinophils (%) (Auto) 0.6 % Basophils (%) (Auto) 0.1 % Neutrophils # (Auto) 6.60 K/uL Lymphocytes # (Auto) 1.67 K/uL Monocytes # (Auto) 0.89 K/uL Eosinophils # (Auto) 0.06 K/uL Basophils # (Auto) 0.01 K/uL RDW Standard Deviation 46.4 fL RDW Coefficient of Variation 14.6 % Immature Granulocyte % (Auto) 0.5 % Immature Granulocyte # (Auto) 0.05 K/uL Sodium Level 135 mmol/L Potassium Level 3.9 mmol/L Chloride Level 98 mmol/L Carbon Dioxide Level 29 mmol/L Anion Gap 8.0 mmol/L Blood Urea Nitrogen 14 mg/dl Creatinine 0.81 mg/dl Est Creatinine Clear Calc Drug Dose 69.7 ml/min Estimated GFR () 93.3 Estimated GFR (Non- 80.5 BUN/Creatinine Ratio 16.7 Random Glucose 104 mg/dl Calcium Level 7.7 mg/dl Phosphorus Level 1.9 mg/dl Magnesium Level 2.1 mg/dl Total Bilirubin 0.5 mg/dl Aspartate Amino Transf (AST/SGOT) 18 U/L Alanine Aminotransferase (ALT/SGPT) 16 U/L Alkaline Phosphatase 43 U/L Total Protein 5.1 gm/dl Albumin 2.6 gm/dl Globulin 2.5 gm/dl Albumin/Globulin Ratio 1.0 Lab Scanned Report Blood Transfusion (Danya Roberts .LAKIA) Assessment and Plan 86 y/o male with a history of spinal stenosis, COPD, severe aortic stenosis, CHF , HTN and HLD who presents s/p exploration of fusion L2-L3, L3-L4, L4-L5, lumbar decompression, medial facetectomies, foraminotomies L1-L2, L5-S1, posterior spinal fusion T10-S1, bilateral SI joint fusions, placement of posterior segmental instrumentation using Medicrea rods and screws T11-S1 with bilateral iliac bolts, infuse collagen sponge combined with Mastergraft placed in the posterolateral gutters and bilateral SI joints, placement of locally harvested morcellized autograft in the placed in the posterior gutters. During the procedure the pt had an estimated blood loss of 1200cc and became hypotensive requiring transfusion of 2U PRBC, aggressive fluid resuscitation and temporary pressor support. S/p spinal fusion, etc. -Pain management, DVT prophylaxis, and PT/OT as per primary team Hypotension--resolved. Last BP 175/73 -Stable without pressors -Resume HCTZ, continue to monitor Acute blood loss anemia--s/p total of 4 units PRBC -Hgb 9.0 on 08/17, has been stable -Continue to monitor Acute kidney injury--resolved -Likely secondary to hypotension/dehydration -Creatinine 0.81 on 08/17 -Continue to monitor DVT prophylaxis -Hold chemical prophylaxis s/p surgery -MADDISON dee and SCDs Code Status -Level I, FULL RESUSCITATION STATUS (Danya Roberts ., ANAM-C) I agree with ANAM assessment and plan VSS Labs reviewed Remains hemodynamically stable Will restart antihypertensives at this time Can move to med/surg floor (Tavares Pierson D.O.)
[2016-08-17] MEDS ORDERED: HYDROCHLOROTHIAZIDE 25 MG TAB PO ONE (11:00)
[2016-08-17 11:18] VITALS: BP 151/70; PULSE 91; TEMP 36.7; O2SAT 92
[2016-08-17 16:06] VITALS: BP 137/71; PULSE 94; TEMP 36.6; O2SAT 94
--- NOTE | 2016-08-17 17:17 | PROGRESS NOTE ---
DATE: 08/17/2016 HISTORY OF PRESENT ILLNESS: Postop day 3, back pain is controlled though more limiting today. Vital signs stable. T-max 37.2. RIVER drained 195 mL today. Hematocrit 26.7. PHYSICAL EXAMINATION: The patient is sitting in bed, has good strength to testing, and appears comfortable. ASSESSMENT: Status post thoracolumbar decompression and fusion. PLAN: At this time, he will maintain the RIVER drain and continue physical therapy as tolerated. He will maintain the Park at least today until this evening. Reassess tomorrow depending on his progress with physical therapy. Again hoping that he will be stable to transition to the orthopedic floor today or in the a.m.
[2016-08-17 18:54] VITALS: BP 157/63; PULSE 95; TEMP 37; O2SAT 94
[2016-08-17] MEDS: TAMSULOSIN HCL 0.4 MG CAP PO SCH (19:43)
[2016-08-17] MEDS: FINASTERIDE 5 MG TAB PO SCH (19:44)
[2016-08-17] MEDS: DOCUSATE SODIUM/SENNA 50/8.6MG TAB PO SCH (19:44)
[2016-08-17] MEDS: LORAZEPAM 0.5 MG TAB PO PRN (21:11)
[2016-08-17] MEDS: ZOLPIDEM TARTRATE 5 MG TAB PO SCH (21:11)
[2016-08-17 23:41] VITALS: BP 108/61; PULSE 82; TEMP 36.9; O2SAT 95
[2016-08-18] MEDS: FAMOTIDINE 20 MG TAB PO PRN (02:43)
[2016-08-18] MEDS: OXYCODONE HCL IR 5 MG TAB (IMMEDIATE RELEASE) PO PRN ×4 (03:25→20:05)
[2016-08-18 03:49] VITALS: BP 104/60; PULSE 78; TEMP 36.9; O2SAT 95
[2016-08-18] MEDS: NORMOSOL R 1,000 ML IV SCH ×3 (03:54→20:58)
[2016-08-18] MEDS: POLYETHYLENE (MIRALAX) 17 GM PACK PO SCH ×4 (04:54→18:30)
--- NOTE | 2016-08-18 05:03 | Clinical Documentation Query ---
CLINICAL DOCUMENTATION QUERY 86-y/o male who has undergone T10-S1 fusion to include bilateral SI joints. This patient lost a large volume of blood during surgery and required ICU hemodynamic monitoring. In your clinical opinion is this patient being managed for: (x ) Hemorrhagic Shock in setting of surgery treated with IV pressor support, IVF boluses, 4 total units of PRBC's, and ICU hemodynamic monitoring. ( ) Other explanation of clinical findings (Please Explain) ( ) Unable to determine (Please Define) ( ) Need to Discuss ( ) Not Agree The medical record reflects the following clinical findings, treatment, and risk factors. Clinical Indicators: BP fell to 80's/50's in surgery. Stat H/H during case H/H 10.2. Documented EBL of 1250. Treatment: Post op ICU hemodynamic monitoring, 2 units of PRBC's, 3L of IV boluses during sx and IV Pressor therapy during case, and an additional 2 units of PRBC's Risk Factors: Age, major extended spinal surgery. Please clarify and document your clinical opinion in the progress notes and discharge summary. Terms such as "probable", "suspected", "likely", "questionable", "possible", or "still to be ruled out" are acceptable. IF IN AGREEMENT, YOU MUST DOCUMENT ABOVE DIAGNOSTIC STATEMENT IN DAILY PROGRESS NOTES AND DISCHARGE SUMMARY. This document is not part of the patient's record. Thank You, Jovany Reza, RN [phone]
[2016-08-18 05:51] LABS: MEAN CORPUSCULAR HEMOGLOBIN 29.4 pg (25-34); MEAN CORPUSCULAR HGB CONC 34.2 g/dl (32-36); MEAN PLATELET VOLUME 10.2 fL (7.4-10.4); PLATELET COUNT 148 K/uL (130-400); RED BLOOD COUNT 2.79 M/uL (4.7-6.1); WHITE BLOOD COUNT 7.08 K/uL (4.8-10.8)
[2016-08-18 06:22] LABS: BUN/CREATININE RATIO 14.9 (10-20); CALCIUM 7.8 mg/dl (8.5-10.1); CREATININE 0.73 mg/dl (0.60-1.40); POTASSIUM 3.8 mmol/L (3.5-5.1)
[2016-08-18 07:07] VITALS: BP 141/73; PULSE 88; TEMP 36.6; O2SAT 92
[2016-08-18] MEDS: OXYCODONE HCL 10 MG TABCR (OXYCONTIN) PO SCH ×2 (07:24→21:19)
[2016-08-18] MEDS: GABAPENTIN 300 MG CAP PO SCH ×3 (07:48→21:19)
[2016-08-18] MEDS: ASPIRIN 81 MG ECTAB PO SCH (07:49)
[2016-08-18] MEDS: ATORVASTATIN 40 MG TAB PO SCH (07:49)
[2016-08-18] MEDS: VENLAFAXINE HCL 37.5 MG TAB PO SCH (07:49)
[2016-08-18] MEDS: HYDROCHLOROTHIAZIDE 25 MG TAB PO SCH (11:00)
[2016-08-18] MEDS ORDERED: COUGH DROP (SUGAR FREE) LOZ 24 LOZ/1 BOX PO SCH (11:30)
[2016-08-18 12:06] VITALS: BP 141/71; PULSE 89; TEMP 36.6; O2SAT 95
[2016-08-18 12:57] LABS: HEMATOCRIT 25.5 % (42-52)
--- NOTE | 2016-08-18 13:50 | Hospitalist Progress Note ---
Hospitalist Progress Note Date of Service Aug 18, 2016. (Danya Roberts .LAKIA) Subjective Pt evaluation today including: conversation w/ patient, physical exam, chart review, lab review, review of inpatient medication list PO Intake: Tolerating PO diet Voiding: liu catheter in place Patient states that his sore throat is improving. His back pain is manageable with oral pain medication. He still notes decreased appetite. He has been passing gas but still denies any bowel movements post operatively. Liu catheter is in place. The patient denies fevers, chills, sweats, chest pain, palpitations, claudication, cough, wheezing, shortness of breath, nausea, vomiting, abdominal pain, dysuria, hematuria, urinary retention, paralysis, weakness, numbness and tingling. Additional Comments: See HPI for pertinent positives and negatives. All other systems reviewed and negative. (Danya Roberts, SHAHRAMC) Objective Vital Signs Date Time Temp Pulse Resp B/P Pulse Ox O2 Delivery O2 Flow Rate FiO2 08/18/16 12:06 36.6 89 20 141/71 95 Room Air 08/18/16 12:00 Room Air 08/18/16 11:47 36.6 88 18 92 08/18/16 08:00 Room Air 08/18/16 07:07 36.6 88 18 141/73 92 Room Air 08/18/16 04:00 Room Air 08/18/16 03:49 36.9 78 18 104/60 95 Room Air 08/18/16 00:00 Room Air 08/17/16 23:41 36.9 82 17 108/61 95 Room Air 08/17/16 20:00 Room Air 08/17/16 18:54 37.0 95 19 157/63 94 Room Air 08/17/16 16:06 36.6 94 20 137/71 94 Room Air 08/17/16 16:00 Room Air (Danya Roberts ., ANAM-C) Physical Exam General Appearance: WD/WN, no apparent distress Eyes: normal inspection, PERRL, EOMI ENT: normal ENT inspection, hearing grossly normal, + pertinent finding ( scratch in back of pharynx) Neck: supple, no JVD, trachea midline Respiratory/Chest: lungs clear, normal breath sounds, no respiratory distress Cardiovascular: regular rate, rhythm, no gallop, + systolic murmur Abdomen: normal bowel sounds, non tender, soft Extremities: non-tender, normal inspection, no pedal edema Neurologic/Psychiatric: alert, normal mood/affect, oriented x 3 Skin: normal color, warm/dry, no rash (Danya Roberts ., SAHHRAMC) Laboratory Results Last 24 Hours Test 08/18/16 05:09 08/18/16 12:40 White Blood Count 7.08 K/uL Red Blood Count 2.79 M/uL Hemoglobin 8.2 g/dL 8.9 g/dL Hematocrit 24.0 % 25.5 % Mean Corpuscular Volume 86.0 fL Mean Corpuscular Hemoglobin 29.4 pg Mean Corpuscular Hemoglobin Concent 34.2 g/dl RDW Standard Deviation 44.5 fL RDW Coefficient of Variation 14.1 % Platelet Count 148 K/uL Mean Platelet Volume 10.2 fL Sodium Level 133 mmol/L Potassium Level 3.8 mmol/L Chloride Level 96 mmol/L Carbon Dioxide Level 32 mmol/L Anion Gap 5.0 mmol/L Blood Urea Nitrogen 11 mg/dl Creatinine 0.73 mg/dl Est Creatinine Clear Calc Drug Dose 77.3 ml/min Estimated GFR () 97.3 Estimated GFR (Non- 84.0 BUN/Creatinine Ratio 14.9 Random Glucose 96 mg/dl Calcium Level 7.8 mg/dl (Danya Roberts, ANAM-C) Assessment and Plan 86 y/o male with a history of spinal stenosis, COPD, severe aortic stenosis, CHF , HTN and HLD who presents s/p exploration of fusion L2-L3, L3-L4, L4-L5, lumbar decompression, medial facetectomies, foraminotomies L1-L2, L5-S1, posterior spinal fusion T10-S1, bilateral SI joint fusions, placement of posterior segmental instrumentation using Medicrea rods and screws T11-S1 with bilateral iliac bolts, infuse collagen sponge combined with Mastergraft placed in the posterolateral gutters and bilateral SI joints, placement of locally harvested morcellized autograft in the placed in the posterior gutters. During the procedure the pt had an estimated blood loss of 1200cc and became hypotensive requiring transfusion of 2U PRBC, aggressive fluid resuscitation and temporary pressor support. S/p spinal fusion, etc. -Pain management, DVT prophylaxis, and PT/OT as per primary team Hemorrhagic shock in setting of surgery, hypotension, acute blood loss anemia-- resolved. Treated with ICU hemodynamic monitoring, pressor support, IVF boluses , and total of 4 units of PRBC -Hgb 9.0 on 08/17, has been stable -Repeat Hgb 8.9 on 08/18 -BP stable without pressors -Resumed HCTZ 08/17 -Resume lisinopril 08/18 Acute kidney injury--resolved -Likely secondary to hypotension/dehydration -Creatinine 0.73 on 08/18 DVT prophylaxis -Hold chemical prophylaxis s/p surgery. -MADDISON dee and SCDs Code Status -Level I, FULL RESUSCITATION STATUS Pt. is stable from a medical standpoint, we will sign off. (Danya Roberts ., PA-C) I agree with PA assessment and plan Agree with recheck Hg in afternoon If Hg>8, can sign off at this time as pt is hemodynamically stable No further interventions at this time (Tavares Pierson, D.O.)
[2016-08-18 14:00] VITALS: BP 130/68; PULSE 87; TEMP 36.8; O2SAT 94
[2016-08-18 15:05] VITALS: BP 110/69; PULSE 78; TEMP 36.7; O2SAT 91
--- NOTE | 2016-08-18 16:37 | PROGRESS NOTE ---
DATE: 08/18/2016 SUBJECTIVE: Today, he is improved. ____ He is in transition to the orthopedic floor. He is undergoing leg therapy, sitting in a chair. Vital signs stable. T-max 36.9. RIVER drained 200 mL today. Hematocrit 25.5. OBJECTIVE: On exam, he has good strength to testing, appears comfortable. ASSESSMENT: Status post thoracolumbar fusion. PLAN: At this time, will initiate physical therapy again tomorrow. Continue to advance bowel regimen. Discontinue Park tomorrow after therapy and lastly begin arrangements for rehab placement.
[2016-08-18] MEDS ORDERED: COUGH DROP (SUGAR FREE) LOZ 24 LOZ/1 BOX PO PRN (17:15)
[2016-08-18] MEDS: FINASTERIDE 5 MG TAB PO SCH (21:19)
[2016-08-18] MEDS: TAMSULOSIN HCL 0.4 MG CAP PO SCH (21:19)
[2016-08-18] MEDS: DOCUSATE SODIUM/SENNA 50/8.6MG TAB PO SCH (21:19)
[2016-08-18] MEDS: LORAZEPAM 0.5 MG TAB PO PRN (21:31)
[2016-08-18 22:50] VITALS: BP 148/69; PULSE 90; TEMP 36.7; O2SAT 91
[2016-08-19] MEDS: ZOLPIDEM TARTRATE 5 MG TAB PO SCH ×2 (00:40→22:21)
[2016-08-19] MEDS: OXYCODONE HCL IR 5 MG TAB (IMMEDIATE RELEASE) PO PRN ×5 (00:40→19:47)
[2016-08-19] MEDS: NORMOSOL R 1,000 ML IV SCH ×3 (04:10→20:32)
[2016-08-19] MEDS: POLYETHYLENE (MIRALAX) 17 GM PACK PO SCH ×5 (05:07→23:20)
[2016-08-19] MEDS: FAMOTIDINE 20 MG TAB PO PRN ×2 (05:12→23:33)
[2016-08-19 07:03] VITALS: BP 134/70; PULSE 82; TEMP 36.7; O2SAT 92
[2016-08-19 07:36] LABS: HEMATOCRIT 23.9 % (42-52); MEAN CELL VOLUME 83.9 fL (80-100); MEAN CORPUSCULAR HEMOGLOBIN 28.8 pg (25-34); MEAN CORPUSCULAR HGB CONC 34.3 g/dl (32-36); MEAN PLATELET VOLUME 9.7 fL (7.4-10.4); PLATELET COUNT 174 K/uL (130-400); RED BLOOD COUNT 2.85 M/uL (4.7-6.1); WHITE BLOOD COUNT 6.86 K/uL (4.8-10.8)
[2016-08-19] MEDS ORDERED: RXC5 PO (07:42)
--- NOTE | 2016-08-19 07:43 | Discharge Instructions ---
Discharge Instructions Admission Reason for Admission: Spinal Stenosis Discharge Discharge Diagnosis / Problem: stenosis Discharge Goals Goal(s): Improve function Activity Recommendations Activity Limitations: per Instructions/Follow-up section . Instructions / Follow-Up Instructions / Follow-Up ACTIVITY RECOMMENDATIONS: SELF CARE INSTRUCTIONS AFTER THORACIC/LUMBAR FUSIONS 1. You may walk to your tolerance. It is good exercise for your legs and back. Expect some back and intermittent leg aches and pains. 2. You may perform "counter-top" level activities (make a sandwich, fay with a project, etc.). 3. No bending or lifting of more than 10 pounds or back twisting of any nature (roll like a log when turning in bed). 4. You may ride in a car for 20-30 minutes at a time. No driving until after your first visit with your doctor. 5. Frequent changes of position and restricting sitting to 30 minutes at a time will help limit the amount of back spasms and stiffness you may experience. 6. You may discontinue the use of ambulatory aids (cane, crutches, etc.) once your strength and confidence allow. 7. You may elevators inspector the shower and let water strike your incision when you arrive home at least once daily. Do not take a tub bath, sit in a hot tub or go into a swimming pool until after your first recheck in the office. SPECIAL CARE INSTRUCTIONS: VERY IMPORTANT TO READ AND REVIEW A. Your surgical incision has been closed with a cosmetic suture under the skin that will dissolve in about 6 weeks. In 14 days, you can use a pair of clean scissors and cut the suture that is left outside of the skin at the ends of your incision. 1. The small skin tapes can be removed 7 days after surgery if they have not fallen off by that point. 2. You may keep the wound open to air as much as possible to promote healing after post-op day number 5 unless told otherwise by your doctor. 3. If you think the wound looks like it is becoming infected (redness or worsening drainage) and/or you are experiencing fever, chill or worsening back pain and muscle spasms, contact the office so that we may evaluate you as soon as possible. B. Complications are uncommon, but please contact us if you have any signs or symptoms of: 1. wound infection (fever higher than 102.5 degrees F, redness, separation of wound, drainage, or increasing pain from the incision) 2. blood clots in legs (pain, swelling, redness and warmth in legs) 3. urinary tract infection (fever higher than 102.5 degrees F, burning upon urination or increased frequency of urination) 4. nerve problems (inability to walk on your toes or heels, numbness, loss of bowel or bladder control) 5. any other symptoms that concern you C. Please call the office at if you have any concerns or questions about your operation or recovery. D. No smoking! Smoking drastically decreases the chance of a solid fusion. E. Do not take any anti-inflammatory medications (Indocin, Advil, Motrin, Aspirin, Naprosyn, etc.) as these may inhibit the chance of a solid fusion. Tylenol is okay to take for pain. MANAGING PAIN AFTER SPINAL SURGERY 1. Narcotic medication is intended for short-term use and will be provided for surgical pain. Surgical pain usually lasts for a period of 4-6 weeks. Narcotic medication includes Percocet, Vicodin, Darvocet, Tylenol #3 or Lortab. 2. Longer-term pain is more appropriately treated with non-narcotic medication such as Tylenol ES. 3. Muscle spasm is not appropriately treated with narcotics. Muscle relaxers such as Soma, Flexeril or Skelaxin can be used along with Tylenol ES. 4. Remember that we all live with some "aches and pains". This is not unusual or uncommon after an injury or as we get older. a. Back pain is expected and may include muscle spasms for 4 to 6 weeks after surgery. The pain should gradually improve. If the pain worsens for no apparent reason, please contact the office. b. Intermittent leg pain may also be experienced and should not be concerned about unless it worsens for no apparent reason. If so, please contact the office. 5. We will provide appropriate medication within the normal guidelines of their prescribed use. We will also be very cautious and aware of potential abuse and extended duration of patients' medication needs. a. Pain medications are for your comfort and to assist with sleep and rest so that the tissue can heal. They are not provided in order to return to normal activity and should not be used through the day. To do so or worsening pain at night can result from ongoing tissue damage and development of tolerance to the prescribed medicine. 6. Please allow 2-3 days to process refills. Prescriptions will not be mailed but must be picked up at the office. FOLLOW UP VISIT: Keep your scheduled follow-up appointment. Any questions, please call the office at . Current Hospital Diet Patient's current hospital diet: Regular Diet Discharge Diet Recommended Diet: Regular Diet Procedures Procedures Performed: T10-L2 Lumbar Laminectomy, Decompression, removal of hardware L2-5, Pedicle Screw Fixation T10-S1, Iliac bolt fixation, Application of Bone Morphogenetic Protein and Madelyn Pending Studies Studies pending at discharge: no Medical Emergencies . Who to Call and When: Medical Emergencies: If at any time you feel your situation is an emergency, please call 911 immediately. . Non-Emergent Contact Non-Emergency issues call your: Primary Care Provider . "Provider Documentation" section prepared by Fabio Galelgos. VTE Core Measure Inpt VTE Proph given/why not?: Karthik Thompson, JL's
[2016-08-19 08:12] LABS: BUN/CREATININE RATIO 12.2 (10-20); CALCIUM 7.9 mg/dl (8.5-10.1); CREATININE 0.73 mg/dl (0.60-1.40); POTASSIUM 3.6 mmol/L (3.5-5.1)
[2016-08-19] MEDS: LORAZEPAM 0.5 MG TAB PO PRN ×2 (08:58→20:40)
[2016-08-19] MEDS: VENLAFAXINE HCL 37.5 MG TAB PO SCH (08:59)
[2016-08-19] MEDS: OXYCODONE HCL 10 MG TABCR (OXYCONTIN) PO SCH (08:59)
[2016-08-19] MEDS: HYDROCHLOROTHIAZIDE 25 MG TAB PO SCH (09:00)
[2016-08-19] MEDS: ATORVASTATIN 40 MG TAB PO SCH (09:00)
[2016-08-19] MEDS: ASPIRIN 81 MG ECTAB PO SCH (09:00)
[2016-08-19] MEDS: LISINOPRIL 40 MG TAB PO SCH (09:00)
[2016-08-19] MEDS: GABAPENTIN 300 MG CAP PO SCH ×3 (09:00→20:34)
[2016-08-19] MEDS: HYDROmorphone INJ 0.5 MG/0.5 ML SYR IV PRN ×2 (09:40→12:55)
[2016-08-19] MEDS: ACETAMINOPHEN 500 MG TAB PO PRN (11:31)
[2016-08-19] MEDS: MoRPHine SULFATE CR 15 MG TAB (MS CONTIN) PO SCH ×2 (14:11→22:21)
--- NOTE | 2016-08-19 14:52 | PROGRESS NOTE ---
DATE: 08/19/2016 DATE: 08/19/2016. SUBJECTIVE: The patient is doing well, is ambulating today. Park is being discontinued. He is sitting in a chair. Vital signs stable. T-max 36.7. RIVER drained 125 mL today. Hematocrit 23.9. OBJECTIVE: On exam, he has reasonable strength to testing. ASSESSMENT: Status post thoracolumbar decompression and fusion. PLAN: At this time, we will continue with therapy, brace when up and ambulatory. I will add MS Contin 15 mg p.o. b.i.d. to see if this can control some of his chronic pain. We would hope for discharge to [facility] or Wednesday.
[2016-08-19 15:00] VITALS: BP 104/63; PULSE 64; TEMP 36.4; O2SAT 90
[2016-08-19] MEDS: FINASTERIDE 5 MG TAB PO SCH (20:34)
[2016-08-19] MEDS: DOCUSATE SODIUM/SENNA 50/8.6MG TAB PO SCH (20:34)
[2016-08-19] MEDS: TAMSULOSIN HCL 0.4 MG CAP PO SCH (20:34)
[2016-08-19 23:20] VITALS: BP 137/64; PULSE 94; TEMP 36.6; O2SAT 94
[2016-08-20] VITALS (17 sets, daily range): BP systolic 125–192; BP diastolic 62–85; PULSE 77–87; TEMP 36.5–37; O2SAT 90–98
[2016-08-20] MEDS: OXYCODONE HCL IR 5 MG TAB (IMMEDIATE RELEASE) PO PRN ×4 (03:39→20:00)
[2016-08-20] MEDS: NORMOSOL R 1,000 ML IV SCH ×3 (03:54→20:04)
[2016-08-20] MEDS: POLYETHYLENE (MIRALAX) 17 GM PACK PO SCH ×3 (05:40→18:00)
[2016-08-20 06:21] LABS: HEMATOCRIT 23.2 % (42-52); MEAN CORPUSCULAR HEMOGLOBIN 29.3 pg (25-34); MEAN CORPUSCULAR HGB CONC 34.5 g/dl (32-36); MEAN PLATELET VOLUME 9.1 fL (7.4-10.4); PLATELET COUNT 204 K/uL (130-400); RED BLOOD COUNT 2.73 M/uL (4.7-6.1); WHITE BLOOD COUNT 6.59 K/uL (4.8-10.8)
[2016-08-20 06:42] LABS: BUN/CREATININE RATIO 11.9 (10-20); CALCIUM 7.9 mg/dl (8.5-10.1); CREATININE 0.78 mg/dl (0.60-1.40); POTASSIUM 3.9 mmol/L (3.5-5.1)
[2016-08-20] MEDS: MoRPHine SULFATE CR 15 MG TAB (MS CONTIN) PO SCH ×2 (09:08→21:00)
[2016-08-20] MEDS: LORAZEPAM 0.5 MG TAB PO PRN (09:08)
[2016-08-20] MEDS: LISINOPRIL 40 MG TAB PO SCH (09:08)
[2016-08-20] MEDS: GABAPENTIN 300 MG CAP PO SCH ×3 (09:09→20:55)
[2016-08-20] MEDS: ATORVASTATIN 40 MG TAB PO SCH (09:09)
[2016-08-20] MEDS: HYDROCHLOROTHIAZIDE 25 MG TAB PO SCH (09:09)
[2016-08-20] MEDS: ASPIRIN 81 MG ECTAB PO SCH (09:09)
[2016-08-20] MEDS: VENLAFAXINE HCL 37.5 MG TAB PO SCH (09:09)
[2016-08-20] MEDS ORDERED: MoRPHine SULFATE CR 15 MG TAB (MS CONTIN) PO SCH (12:15)
[2016-08-20] MEDS ORDERED: NURSING VERBAL MED ORDER ONE ×3 (13:45→20:00)
[2016-08-20] MEDS ORDERED: BISACODYL 5 MG TABEC PO PRN (14:00)
--- NOTE | 2016-08-20 15:36 | PROGRESS NOTE ---
DATE: 08/20/2016 DATE: 08/20/2016. SUBJECTIVE: Back pain is better controlled on MS Contin. Leg symptoms improved. Vital signs stable. T-max 36.9. RIVER drained 100 mL today. Hematocrit this morning was 23.2. OBJECTIVE: On exam he is in bed, has good strength to testing. Has been tolerating physical therapy. Park has been removed. ASSESSMENT: Status post thoracolumbar fusion. PLAN: At this time I elected to transfuse him today. He does appear quite weak. We did increase his MS Contin to 30 b.i.d. and plan to assess him Wednesday or Wednesday for transfer to [facility].
[2016-08-20] MEDS ORDERED: FUROSEMIDE INJ 20 MG in SYRINGE 0 ML IV ONE (16:15)
[2016-08-20] MEDS: FAMOTIDINE 20 MG TAB PO PRN (20:01)
[2016-08-20] MEDS: FINASTERIDE 5 MG TAB PO SCH (20:55)
[2016-08-20] MEDS: TAMSULOSIN HCL 0.4 MG CAP PO SCH (20:56)
[2016-08-20] MEDS: DOCUSATE SODIUM/SENNA 50/8.6MG TAB PO SCH (20:57)
[2016-08-20] MEDS: ZOLPIDEM TARTRATE 5 MG TAB PO SCH (22:33)
[2016-08-21 00:22] VITALS: BP 154/73; PULSE 77
[2016-08-21] MEDS: NORMOSOL R 1,000 ML IV SCH ×3 (02:08→19:17)
[2016-08-21] MEDS: OXYCODONE HCL IR 5 MG TAB (IMMEDIATE RELEASE) PO PRN ×4 (02:11→19:18)
[2016-08-21 04:04] VITALS: BP 108/59
[2016-08-21] MEDS: ACETAMINOPHEN 500 MG TAB PO PRN (05:19)
[2016-08-21 06:09] LABS: HEMATOCRIT 29.8 % (42-52)
[2016-08-21 07:10] VITALS: BP 135/70; PULSE 80; TEMP 36.7; O2SAT 94
[2016-08-21] MEDS: ASPIRIN 81 MG ECTAB PO SCH (07:25)
[2016-08-21] MEDS: VENLAFAXINE HCL XR 37.5 MG CAPXR PO SCH (07:25)
[2016-08-21] MEDS: ATORVASTATIN 40 MG TAB PO SCH (07:27)
[2016-08-21] MEDS: LISINOPRIL 40 MG TAB PO SCH (07:27)
[2016-08-21] MEDS: GABAPENTIN 300 MG CAP PO SCH ×3 (07:28→20:57)
[2016-08-21] MEDS: HYDROCHLOROTHIAZIDE 25 MG TAB PO SCH (07:28)
[2016-08-21] MEDS: MoRPHine SULFATE CR 15 MG TAB (MS CONTIN) PO SCH ×2 (07:31→20:57)
[2016-08-21 12:00] VITALS: BP 136/70; PULSE 75; TEMP 36.5; O2SAT 95
[2016-08-21] MEDS ORDERED: MRPSR15 PO (14:03)
--- NOTE | 2016-08-21 14:36 | PROGRESS NOTE ---
DATE: 08/21/2016 He is feeling much improved today. He is status post 2 units of blood. Vital signs stable. T-max 36.7. RIVER drained 40 mL today. Hematocrit now 29.8. On exam, he is in chair at bedside, wearing his brace. He has good strength to testing, appears comfortable. ASSESSMENT: Status post multilevel lumbar decompression and fusion. PLAN: At this time, we are planning for discharge to [facility] Wednesday.
[2016-08-21 15:33] VITALS: BP 152/71; PULSE 77; TEMP 37.1; O2SAT 95
[2016-08-21] MEDS: TAMSULOSIN HCL 0.4 MG CAP PO SCH (20:56)
[2016-08-21] MEDS: FINASTERIDE 5 MG TAB PO SCH (20:57)
[2016-08-21] MEDS: LORAZEPAM 0.5 MG TAB PO PRN (20:58)
[2016-08-21] MEDS: DOCUSATE SODIUM/SENNA 50/8.6MG TAB PO SCH (20:58)
[2016-08-21] MEDS: ZOLPIDEM TARTRATE 5 MG TAB PO SCH (20:58)
[2016-08-22 00:16] VITALS: BP 111/56; PULSE 79; TEMP 36.9; O2SAT 91
[2016-08-22] MEDS: OXYCODONE HCL IR 5 MG TAB (IMMEDIATE RELEASE) PO PRN ×4 (03:53→23:05)
[2016-08-22] MEDS: NORMOSOL R 1,000 ML IV SCH ×3 (04:00→19:27)
[2016-08-22 07:26] VITALS: BP 148/66; PULSE 76; TEMP 36.8; O2SAT 94
[2016-08-22] MEDS: ATORVASTATIN 40 MG TAB PO SCH (08:48)
[2016-08-22] MEDS: ASPIRIN 81 MG ECTAB PO SCH (08:48)
[2016-08-22] MEDS: GABAPENTIN 300 MG CAP PO SCH ×3 (08:48→21:29)
[2016-08-22] MEDS: HYDROCHLOROTHIAZIDE 25 MG TAB PO SCH (08:49)
[2016-08-22] MEDS: VENLAFAXINE HCL XR 37.5 MG CAPXR PO SCH (08:49)
[2016-08-22] MEDS: LISINOPRIL 40 MG TAB PO SCH (08:49)
[2016-08-22] MEDS: MoRPHine SULFATE CR 15 MG TAB (MS CONTIN) PO SCH ×2 (08:52→21:27)
--- NOTE | 2016-08-22 10:41 | DISCHARGE SUMMARY ---
DATE OF DISCHARGE: 08/22/2016. PRINCIPAL DIAGNOSIS: Spinal stenosis. HOSPITAL COURSE FOLLOWS: On 08/15/2016 he underwent thoracolumbar decompression and fusion, tolerated this well and taken to the unit postoperatively. He did progress nicely in the unit for 2 days, transferred to the orthopedic floor. Throughout the week progressed steadily and nicely, tolerating his brace when up and ambulatory and drain decreasing appropriately. We did transfuse him 2 days ago and he had tremendous response from this. Subsequently, he was discharged to [facility] on the . Discharge orders and instructions can be found on the chart for further review.
[2016-08-22 15:25] VITALS: BP 119/62; PULSE 89; TEMP 36.7; O2SAT 94
[2016-08-22] MEDS: ZOLPIDEM TARTRATE 5 MG TAB PO SCH (21:25)
[2016-08-22] MEDS: LORAZEPAM 0.5 MG TAB PO PRN (21:27)
[2016-08-22] MEDS: TAMSULOSIN HCL 0.4 MG CAP PO SCH (21:29)
[2016-08-22] MEDS: FINASTERIDE 5 MG TAB PO SCH (21:29)
[2016-08-22] MEDS: DOCUSATE SODIUM/SENNA 50/8.6MG TAB PO SCH (21:30)
[2016-08-22 22:56] VITALS: BP 180/84; PULSE 88; TEMP 36.6; O2SAT 92
[2016-08-22 23:03] VITALS: BP 159/82; PULSE 88
[2016-08-23] MEDS: NORMOSOL R 1,000 ML IV SCH (03:59)
[2016-08-23] MEDS: OXYCODONE HCL IR 5 MG TAB (IMMEDIATE RELEASE) PO PRN ×2 (04:47→08:54)
[2016-08-23] MEDS: LORAZEPAM 0.5 MG TAB PO PRN (06:12)
[2016-08-23 07:10] VITALS: BP 162/79; PULSE 99; TEMP 36.4; O2SAT 93
[2016-08-23] MEDS: VENLAFAXINE HCL XR 37.5 MG CAPXR PO SCH (07:39)
[2016-08-23] MEDS: MoRPHine SULFATE CR 15 MG TAB (MS CONTIN) PO SCH (07:39)
[2016-08-23] MEDS: GABAPENTIN 300 MG CAP PO SCH (08:38)
[2016-08-23] MEDS: ATORVASTATIN 40 MG TAB PO SCH (08:38)
[2016-08-23] MEDS: ASPIRIN 81 MG ECTAB PO SCH (08:38)
[2016-08-23] MEDS: HYDROCHLOROTHIAZIDE 25 MG TAB PO SCH (08:39)
[2016-08-23] MEDS: LISINOPRIL 40 MG TAB PO SCH (08:39)
[2016-08-23 09:18] VITALS: BP 158/78; PULSE 78; O2SAT 95
[2016-08-23] MEDS ORDERED: NURSING VERBAL MED ORDER ONE (09:45)
[2016-08-23 10:12] VITALS: BP 158/78; PULSE 78; TEMP 36.4; O2SAT 95
== END 2016-08-23 12:16 | DRG 456 ==
LOC: ENRESERVTM → ENRESERVDT → C.ACU 10:59 → C.MSICU 18:42 → C.2T 08-15 11:33 → CANBEDREQ 08-15 13:22 → C.MSW 08-18 11:45
PROVIDERS: ADMIT Orthopaedic Surgery Orthopaedic Surgery of the Spine; ATTEND Orthopaedic Surgery Orthopaedic Surgery of the Spine
PROC: 0SG704Z Fusion of Right Sacroiliac Joint with Internal Fixation Device, Open Approach (ICD-10-PCS; principal; 2016-08-14 13:20)
PROC: 0RG7071 Fusion of 2 to 7 Thoracic Vertebral Joints with Autologous Tissue Substitute, Posterior Approach, Posterior Column, Open Approach (ICD-10-PCS; principal; 2016-08-14 13:20)
PROC: 0SG3071 Fusion of Lumbosacral Joint with Autologous Tissue Substitute, Posterior Approach, Posterior Column, Open Approach (ICD-10-PCS; principal; 2016-08-14 13:20)
PROC: 01NB0ZZ Release Lumbar Nerve, Open Approach (ICD-10-PCS; principal; 2016-08-14 13:20)
PROC: 3E0V0GB Introduction of Recombinant Bone Morphogenetic Protein into Bones, Open Approach (ICD-10-PCS; principal; 2016-08-14 13:20)
PROC: 0RGA071 Fusion of Thoracolumbar Vertebral Joint with Autologous Tissue Substitute, Posterior Approach, Posterior Column, Open Approach (ICD-10-PCS; principal; 2016-08-14 13:20)
PROC: 0QP004Z Removal of Internal Fixation Device from Lumbar Vertebra, Open Approach (ICD-10-PCS; principal; 2016-08-14 13:20)
PROC: 0SG804Z Fusion of Left Sacroiliac Joint with Internal Fixation Device, Open Approach (ICD-10-PCS; principal; 2016-08-14 13:20)
DX: M41.9 Scoliosis, unspecified (principal); T81.19XA Other postprocedural shock, initial encounter; E27.40 Unspecified adrenocortical insufficiency; D62 Acute posthemorrhagic anemia; N17.9 Acute kidney failure, unspecified; I95.81 Postprocedural hypotension; I35.0 Nonrheumatic aortic (valve) stenosis; M48.06 Spinal stenosis, lumbar region; J44.9 Chronic obstructive pulmonary disease, unspecified; E78.5 Hyperlipidemia, unspecified; I10 Essential (primary) hypertension; E86.0 Dehydration; Z87.891 Personal history of nicotine dependence; Y83.8 Other surgical procedures as the cause of abnormal reaction of the patient, or of later complication, without mention of misadventure at the time of the procedure; Y92.239 Unspecified place in hospital as the place of occurrence of the external cause

== ENCOUNTER → 2017-04-02 | Outpatient (CLI) | payer OTHER, BC ==
[~2017-04-02] MED LIST changes: -CEFAZOLIN 2000 MG/60 ML D5W IV SCH; -LACTATED RINGER'S 1000ML 1,000 ML IV SCH; +MRPSR15 PO; -OXYCODONE HCL 10 MG TABCR (OXYCONTIN) PO SCH; -POLY1POW2 PO; +RXC5 PO
[2017-04-02 17:03] LABS: BASO % 0.3 %; BASO ABS # 0.02 K/uL (0-0.2); COMPLETE YES; EOS % 4.7 %; HEMATOCRIT 37.9 % (42-52); IG% 0.6 %; LYMPH % 30.8 %; LYMPH ABS # 2.21 K/uL (1.2-3.4); MEAN CELL VOLUME 88.1 fL (80-100); MEAN PLATELET VOLUME 10.3 fL (7.4-10.4); MONO % 8.4 %; NEUT % 55.2 %; PLATELET COUNT 237 K/uL (130-400); WHITE BLOOD COUNT 7.17 K/uL (4.8-10.8)
[2017-04-02 17:20] LABS: ALKALINE PHOSPHATASE 94 U/L (45-117); ALT/SGPT 23 U/L (12-78); AST/SGOT 15 U/L (15-37); BLOOD UREA NITROGEN 19 mg/dl (7-18); CARBON DIOXIDE 29 mmol/L (21-32); CHLORIDE 96 mmol/L (98-107); GLUCOSE 80 mg/dl (70-99); HDL CHOLESTEROL 60 mg/dl; POTASSIUM 4.1 mmol/L (3.5-5.1); SODIUM 133 mmol/L (136-145)
[2017-04-02 17:30] LABS: CHOLESTEROL 129 mg/dl (0-200); CHOLESTEROL/HDL RATIO 2.2; LDL CHOLESTEROL CALCULATED 48 mg/dl; TRIGLYCERIDES 107 mg/dl (0-150); VERY LOW DENSITY LIPOPROT CALC 21 mg/dl
== END | disposition home or self-care (01) ==
LOC: C.LABBC 15:20
PROVIDERS: ATTEND Internal Medicine Geriatric Medicine
DX: I10 Essential (primary) hypertension (principal); D64.9 Anemia, unspecified; M48.061 Spinal stenosis, lumbar region without neurogenic claudication; I35.0 Nonrheumatic aortic (valve) stenosis; M54.9 Dorsalgia, unspecified; R73.9 Hyperglycemia, unspecified; E78.5 Hyperlipidemia, unspecified

== ENCOUNTER → 2017-10-30 | Outpatient (CLI) | payer OTHER, BC ==
[~2017-10-30] MED LIST changes: +ASPI-319 PO; -ASPI81TA21 PO
--- NOTE | 2017-10-30 10:46 | DIAGNOSTIC IMAGING REPORT ---
CHEST 2 VIEWS ROUTINE CLINICAL HISTORY: 87 years-old Male presenting with J44.9 Chronic obstructive pulmonary [id number] Cough productive. TECHNIQUE: PA and lateral views of the chest were obtained. COMPARISON: 05/29/2016. FINDINGS: Atherosclerosis of the aortic arch. Cardiac silhouette normal in size. Heterogeneity of lung parenchyma with multifocal regions of radiolucency. Mild peripheral reticular opacities bilaterally both at the bases and upper lungs. No new focal opacity. No pleural effusion or pneumothorax. Posterior fusion hardware evident at the thoracolumbar junction, which is new from prior. The compression deformity at the superior most vertebral body level included in the fused section is also new from prior. The transpedicular screws violate the superior endplate at this level. Upper abdomen normal. IMPRESSION: 1. Findings suggest emphysema. No focal infiltrate to suggest pneumonia. 2. Interval posterior fusion of the thoracolumbar junction with compression fracture of the superiormost fused level. In particular screws at this level violate the superior endplate. This compression deformity was not present at the time of surgery placed on fluoroscopic images from 08/14/2016. Correlate clinically for tenderness. Electronically signed by: Bautista Gandhi M.D. 10/30/2017 10:44 AM Dictated Date/Time: 10/30/2017 10:42 AM
[2017-10-30 13:02] LABS: BASO % 0.2 %; BASO ABS # 0.01 K/uL (0-0.2); EOS % 2.5 %; EOS ABS # 0.16 K/uL (0-0.5); HEMATOCRIT 40.1 % (42-52); HEMOGLOBIN 13.6 g/dL (14.0-18.0); IG# 0.04 K/uL (0.00-0.02); LYMPH % 18.2 %; LYMPH ABS # 1.16 K/uL (1.2-3.4); MEAN CELL VOLUME 90.3 fL (80-100); MEAN CORPUSCULAR HEMOGLOBIN 30.6 pg (25-34); MEAN CORPUSCULAR HGB CONC 33.9 g/dl (32-36); MEAN PLATELET VOLUME 10.9 fL (7.4-10.4); MONO % 13.9 %; MONO ABS # 0.89 K/uL (0.11-0.59); NEUT % 64.6 %; NEUT ABS # 4.13 K/uL (1.4-6.5); PLATELET COUNT 207 K/uL (130-400); RED CELL DISTRIBUTION WIDTH SD 42.8 fL (36.4-46.3); WHITE BLOOD COUNT 6.39 K/uL (4.8-10.8)
[2017-10-30 13:10] LABS: BLOOD UREA NITROGEN 16 mg/dl (7-18); CALCIUM 9.6 mg/dl (8.5-10.1); CARBON DIOXIDE 29 mmol/L (21-32); CREATININE 1.12 mg/dl (0.60-1.40); GLUCOSE 94 mg/dl (70-99); SODIUM 131 mmol/L (136-145)
== END | disposition home or self-care (01) ==
LOC: C.RAD1850 10:21
PROVIDERS: ATTEND Internal Medicine
DX: I10 Essential (primary) hypertension (principal); D64.9 Anemia, unspecified; R94.2 Abnormal results of pulmonary function studies; J44.9 Chronic obstructive pulmonary disease, unspecified; R05 Cough

== ENCOUNTER → 2018-01-25 | Outpatient (CLI) | payer OTHER, BC | END | disposition home or self-care (01) | LOC: C.MAMM 12:47 | PROVIDERS: ATTEND Internal Medicine Geriatric Medicine | DX: Z13.820 Encounter for screening for osteoporosis (principal) ==